=== PATIENT | female | born 1935 | race Caucasian/White ===

== ENCOUNTER 2016-08-23 14:38 | Emergency (ER) | payer OTHER ==
--- NOTE | 2016-08-23 15:13 | ED EKG INTERP ---
EKG Interpretation - EKG Time of EKG reading by physician:: 15:01 EKG Read and Signed by:: Tin Sanchez EKG Interpretation (*Must complete 3 of following elements*): Abnormal Rate: 85 Rhythm: Sinus Rhythm [facility] [place]: normal QRS: normal NV Interval: normal ST Wave: non-specific ST changes Attestation - Scribe Verification/Attestation Scribe:: Bandar Whitten Acting as Scribe for:: Tin Sanchez Scribe documention review:: This chart was documented by a scribe and accurately reflects the service the provider performed and the decisions made by the provider. Physician Attestation - Physician Attestation I, the provider, attest to the following statement:: iTn Sanchez (\) Physician documentation Attestation:: This documentation recorded by the scribe accurately reflects the service I personally performed and the decisions made by me.
[2016-08-23 15:36] LABS: MANUAL DIFF NEEDED? NO
--- NOTE | 2016-08-23 15:39 | EKG Report ---
Test Performed on : 08/23/2016 3:01:01 PM Test Reason : CHEST PAIN Blood Pressure : / mmHG Vent. Rate : 077 BPM Atrial Rate : 083 BPM P-R Int : 000 ms QRS Dur : 076 ms QT Int : 430 ms P-R-T Axes : 000 006 072 degrees QTc Int : 486 ms Atrial fibrillation. Inferior infarct (cited on or before 17-JUN-2007) ST & T wave abnormality, consider lateral ischemia Abnormal ECG When compared with ECG of 26-OCT-2012 22:12, Atrial fibrillation. has replaced Sinus rhythm. ST now depressed in Lateral leads Unconfirmed Result
[2016-08-23 15:49] LABS: BASO% 0.6 % (0.0-0.8); EOS% 2.9 % (0.0-10.0); HEMATOCRIT 44.7 % (37.0-47.0); LYMPH# 1.38 X1000 (1.2-3.4); LYMPH% 20.4 % (20.5-51.1); MCH 32.6 PG (27-31); MCHC 33.6 g/dL (33-37); MCV 97.2 FL (81-99); MONO# 0.83 X1000 (0.11-0.59); MONO% 12.2 % (1.7-9.3); MPV 11.4 FL (7.4-10.4); NEUT% 63.9 % (42.2-75.2); PLT 197 X1000 (130-400)
[2016-08-23 15:55] LABS: INR 1.45; PROTIME 15.4 Seconds (9.2-11.7); PTT 32.5 Seconds (22.0-36.0)
[2016-08-23 16:00] LABS: ALBUMIN 3.2 g/dL (3.5-5.0); CALCIUM 9.3 mg/dL (8.8-10.2); MAGNESIUM 1.7 mg/dL (1.5-2.7); POTASSIUM 4.1 mmol/L (3.5-5.1); TOTAL BILIRUBIN 0.68 mg/dL (0.20-1.00); TOTAL PROTEIN 6.4 g/dL (6.3-8.3)
--- NOTE | 2016-08-23 16:41 | PROVIDER DOCUMENTATION ---
HPI-Respiratory General - General Source: patient, family - History of Present Illness-Resp Quality of Pain: reports: fullness Severity in ED: reports: moderate Onset/Duration: reports: other (x2 weeks) Timing: reports: still present (pt states is improving, still present but not as bad a it was before she came into the ER.) Cough Quality/Degree: reports: mild. denies: sputum, blood streaked sputum Episode Frequency: no prior episodes Modifying Factors: improves with: nothing Similar Symptoms Previously?: No Recently seen or treated by another doctor?: No <Crissy Carlson - Last Filed: 08/23/16 16:53> <Tc Little - Last Filed: 08/23/16 19:23> - General Chief Complaint: Shortness of Breath Stated Complaint: DIFFICULTY BREATHING Time Seen by Provider: 08/23/16 16:34 Allergies/Adverse Reactions: Patient Allergies Allergy/AdvReac Type Severity Reaction Status Date / Time iodine Allergy Intermediate RASH Verified 08/23/16 16:31 Home Medications: Home Medication List Medication Instructions Recorded Confirmed Last Taken Type Aspirin 81 mg PO DAILY 10/26/12 08/23/16 1 Week Ago History Hydroxyzine [Atarax] 25 mg PO BID 10/26/12 08/23/16 1 Week Ago History Insulin Aspart [Novolog Flexpen] 100 units SQ TID 10/26/12 08/23/16 08/23/16 History Insulin Detemir [Levemir Flexpen] 25 units SQ QHS 10/26/12 08/23/16 08/23/16 History Isosorbide Mononitrate E.r. [Imdur] 30 mg PO BID 10/26/12 08/23/16 1 Week Ago History Pantoprazole Sodium [Protonix] 20 mg PO DAILY 10/26/12 08/23/16 1 Week Ago History Valsartan [Diovan] 80 mg PO DAILY 10/26/12 08/23/16 1 Week Ago History Carvedilol C.r. [Coreg Cr] 40 mg PO DAILY #0 capsule 10/30/12 08/23/16 1 Week Ago Rx Glimepiride [Amaryl] 2 mg PO BID #0 tablet 10/30/12 08/23/16 1 Week Ago Rx Magnesium Oxide [Magnesium] 400 mg PO DAILY #30 capsule 10/30/12 08/23/16 1 Week Ago Rx RAMIpril [Altace] 5 mg PO DAILY #0 capsule 10/30/12 08/23/16 1 Week Ago Rx SIMVAstatin [Zocor] 20 mg PO DAILY #0 tablet 10/30/12 08/23/16 1 Week Ago Rx Mometasone/Formoterol [Dulera 200 2 puff INH BID #1 inhaler 09/03/14 08/23/16 1 Week Ago Rx Mcg/5 Mcg Inhaler] Ropinirole HCl [Requip] 0.25 mg PO HS 09/03/14 08/23/16 08/23/16 History Rivaroxaban [Xarelto] 15 mg PO DAILY 10/15/15 08/23/16 1 Week Ago History Cholecalciferol (Vitamin D3) 2,000 unit PO 08/23/16 1 Week Ago History [Vitamin D3] Furosemide [Lasix] 40 mg PO DAILY 08/23/16 08/23/16 1 Week Ago History Iron Carbonyl/Vit C/Vit B12/FA 1 each PO DAILY 08/23/16 08/23/16 1 Week Ago History [Icar-C Plus] Ketoconazole 2% Cream [Nizoral 2% TOP BID 08/23/16 Unknown History Cream] Lorazepam [Ativan] 0.5 mg PO TID 08/23/16 08/23/16 08/23/16 History Nitroglycerin [Nitroquick] 0.4 mg SL PRN PRN 08/23/16 08/23/16 Unknown History Polyethylene Glycol 3350 [Miralax] 1 cap PO DAILY #1 powder 08/23/16 Unknown Rx Potassium Chloride E.r. [Klor-Con] 20 meq PO DAILY 08/23/16 08/23/16 1 Week Ago History - History of Present Illness-Resp Nature of Presenting Problem: pt is a 81 y/o F present to the ER with complaints of shortness of breath. pt was at Dr omss's office today and felt short of breath, Dr. moss sent her to the ER. at bedside. Pt states this problem started [id number] ago. pt also states she has problem swallowing because she feels like she cannot catch her breath. Pt has hx of stroke, HTN, DM. Pt states she has not had a normal bowel movement x2 weeks, she passed small amount of liquid stool x2 days ago. pt denies chest pain, nausea, vomiting. (Crissy Carlson) Review of Systems - Adult - REVIEW OF SYSTEMS - ADULT Constitutional: reports: no symptoms reported Eyes: reports: no symptoms reported Ears, Nose, Mouth & Throat: reports: no symptoms reported Cardiovascular: reports: no symptoms reported Respiratory: reports: shortness of breath. denies: dyspnea on exertion, excessive sputum production, hemoptysis Gastrointestinal: reports: abdominal pain, constipation, difficulty swallowing. denies: hematemesis, diarrhea, nausea, vomiting Genitourinary: reports: no symptoms reported Musculoskeletal: reports: no symptoms reported Integumentary: reports: no symptoms reported Neurological: reports: no symptoms reported Psychiatric: reports: no symptoms reported Endocrine: reports: no symptoms reported Hematologic/Lymphatic: reports: no symptoms reported Allergic/Immunologic: reports: no symptoms reported All Other Systems: Reviewed and Negative <Crissy Carlson - Last Filed: 08/23/16 16:53> Past History - Adult - PAST MEDICAL HISTORY-ADULT Review of Records: reports: Nursing Assessment Review Major Childhood Illnesses: reports: denies history Cardiovascular: reports: CAD, CHF, HTN, hyperlipidemia Neurological: reports: CVA - PRIOR SURGERIES/PROCEDURES Surgical/Procedure History: reports: reviewed, not pertinent - IMMUNIZATION STATUS Childhood Immunizations: See Nurse Assessment Flu Vaccine: See Nurse Assessment - SOCIAL HISTORY Smoking: denies Substance Use: none/never Alcohol Use Frequency: never <Crissy Carlson - Last Filed: 08/23/16 16:53> Physical Exam-General - PHYSICAL EXAM-ADULT Initial Vital Signs Reviewed: Yes - CONSTITUTIONAL General Appearance: appears well, alert, mild distress - EYES Eyes: PERRL/EOMI, pink conjunctivae - HEAD, EARS, NOSE, MOUTH & THROAT HENMT: moist mucous membranes - NECK Neck: non-tender, full range of motion - RESPIRATORY Respiratory: chest non-tender, lungs clear, normal breath sounds - CARDIOVASCULAR Cardiovascular: normal peripheral pulses, regular rate, rhythm - GASTROINTESTINAL (ABDOMEN) Abdominal Exam: normal bowel sounds, distended, tenderness (LUQ TTP) - SKIN Integumentary: normal color, normal turgor, warm/dry - PSYCHIATRIC Psych/Mental Status: normal mood/affect, normal thought content, normal thought process, oriented x 3 <Crissy Carlson - Last Filed: 08/23/16 16:53> Progress - XRAY 1 XRAY: Bilateral XRAY Study: Chest Impression: Abnormal (mild central vascular prominence ([place])) <Crissy Carlson - Last Filed: 08/23/16 16:53> - CT/MRI 1 CT Study: Abdomen, Pelvis Impression: Abnormal (Oral contrast within the colon from a barium swallow on ; no bowel obstruction; normal appendix; no abscess; no renal stones; no hydronephrosis; lots of abdominal fat; no ascites; atherosclerosis - radiology) <Tc Little - Last Filed: 08/23/16 19:23> - PLAN OF CARE/RESULTS Progress/Plan/Lab Results: Laboratory Tests 08/23/16 08/23/16 08/23/16 15:12 15:12 15:12 WBC 6.78 RBC 4.60 Hgb 15.0 Hct 44.7 MCV 97.2 MCH 32.6 H MCHC 33.6 RDW Std Deviation 12.9 Plt Count 197 MPV 11.4 H Immature Gran % (Auto) 0.0 Neut % (Auto) 63.9 Lymph % (Auto) 20.4 L [place] % (Auto) 12.2 H Eos % (Auto) 2.9 Baso % (Auto) 0.6 Immature Gran # (Auto) 0.00 Neut # (Auto) 4.33 Lymph # (Auto) 1.38 [place] # (Auto) 0.83 H Eos # (Auto) 0.20 Baso # (Auto) 0.04 PT INR PTT (Actin FS) D-Dimer 0.24 Sodium 141 Potassium 4.1 Chloride 100 Carbon Dioxide 24 L Anion Gap 17 BUN 18 Creatinine 1.6 H Estimated GFR/1.73 m2 31 BUN/Creatinine Ratio 11 Glucose 229 H Calculated Osmolality 290 Calcium 9.3 Magnesium 1.7 Total Bilirubin 0.68 AST 18 ALT 9 L Alkaline Phosphatase 84 Creatine Kinase 60 Troponin T Yzt-B-Eudqwxuhxpp Pept Total Protein 6.4 Albumin 3.2 L Globulin 3.2 Albumin/Globulin Ratio 1.0 08/23/16 08/23/16 08/23/16 15:12 15:12 15:12 WBC RBC Hgb Hct MCV MCH MCHC RDW Std Deviation Plt Count MPV Immature Gran % (Auto) Neut % (Auto) Lymph % (Auto) [place] % (Auto) Eos % (Auto) Baso % (Auto) Immature Gran # (Auto) Neut # (Auto) Lymph # (Auto) [place] # (Auto) Eos # (Auto) Baso # (Auto) PT 15.4 H INR 1.45 PTT (Actin FS) 32.5 D-Dimer Sodium Potassium Chloride Carbon Dioxide Anion Gap BUN Creatinine Estimated GFR/1.73 m2 BUN/Creatinine Ratio Glucose Calculated Osmolality Calcium Magnesium Total Bilirubin AST ALT Alkaline Phosphatase Creatine Kinase Troponin T < 0.010 Pgv-M-Qmwmvroncyh Pept 1603 H Total Protein Albumin Globulin Albumin/Globulin Ratio Orders Category Date Time Status CHEST-2 VIEWS [RAD] Stat Exams 08/23/16 14:48 Taken CBC WITH ELECTRONIC DIFF [HEME] Stat Lab 08/23/16 15:12 Completed CK PROFILE [SP CHEM] Stat Lab 08/23/16 15:12 Completed COMPREHENSIVE METABOLIC PANEL [CHEM] Stat Lab 08/23/16 15:12 Completed D-DIMER [CHEM] Stat Lab 08/23/16 15:12 Completed MAGNESIUM [CHEM] Stat Lab 08/23/16 15:12 Completed PRO B-NATRIURETIC PEPTIDE Stat Lab 08/23/16 15:12 Completed PROTIME WITH INR [COAG] Stat Lab 08/23/16 15:12 Completed PTT [COAG] Stat Lab 08/23/16 15:12 Completed TROPONIN T Stat Lab 08/23/16 15:12 Completed EKG [EKG] Stat Ther 08/23/16 14:48 Draft Vital Signs - 24 hr 08/23/16 14:46 Temperature 97.2 F L Pulse Rate 75 Respiratory 20 Rate Blood Pressure 136/68 O2 Sat by Pulse 100 Oximetry Laboratory Tests 08/23/16 08/23/16 08/23/16 15:12 15:12 15:12 WBC 6.78 RBC 4.60 Hgb 15.0 Hct 44.7 MCV 97.2 MCH 32.6 H MCHC 33.6 RDW Std Deviation 12.9 Plt Count 197 MPV 11.4 H Immature Gran % (Auto) 0.0 Neut % (Auto) 63.9 Lymph % (Auto) 20.4 L [place] % (Auto) 12.2 H Eos % (Auto) 2.9 Baso % (Auto) 0.6 Immature Gran # (Auto) 0.00 Neut # (Auto) 4.33 Lymph # (Auto) 1.38 [place] # (Auto) 0.83 H Eos # (Auto) 0.20 Baso # (Auto) 0.04 PT INR PTT (Actin FS) D-Dimer 0.24 Sodium 141 Potassium 4.1 Chloride 100 Carbon Dioxide 24 L Anion Gap 17 BUN 18 Creatinine 1.6 H Estimated GFR/1.73 m2 31 BUN/Creatinine Ratio 11 Glucose 229 H Calculated Osmolality 290 Calcium 9.3 Magnesium 1.7 Total Bilirubin 0.68 AST 18 ALT 9 L Alkaline Phosphatase 84 Creatine Kinase 60 Troponin T Kia-H-Aywpynnxjlk Pept Total Protein 6.4 Albumin 3.2 L Globulin 3.2 Albumin/Globulin Ratio 1.0 08/23/16 08/23/16 08/23/16 15:12 15:12 15:12 WBC RBC Hgb Hct MCV MCH MCHC RDW Std Deviation Plt Count MPV Immature Gran % (Auto) Neut % (Auto) Lymph % (Auto) [place] % (Auto) Eos % (Auto) Baso % (Auto) Immature Gran # (Auto) Neut # (Auto) Lymph # (Auto) [place] # (Auto) Eos # (Auto) Baso # (Auto) PT 15.4 H INR 1.45 PTT (Actin FS) 32.5 D-Dimer Sodium Potassium Chloride Carbon Dioxide Anion Gap BUN Creatinine Estimated GFR/1.73 m2 BUN/Creatinine Ratio Glucose Calculated Osmolality Calcium Magnesium Total Bilirubin AST ALT Alkaline Phosphatase Creatine Kinase Troponin T < 0.010 Iww-U-Huiajvzxgmy Pept 1603 H Total Protein Albumin Globulin Albumin/Globulin Ratio Orders Category Date Time Status PO Fluid Challenge DIRECTED Care 08/23/16 16:43 Active CHEST-2 VIEWS [RAD] Stat Exams 08/23/16 14:[address] ABD/PELVIS W/ IV CONT ONLY [CT] Stat Exams 08/23/16 16:53 Ordered CBC WITH ELECTRONIC DIFF [HEME] Stat Lab 08/23/16 15:12 Completed CK PROFILE [SP CHEM] Stat Lab 08/23/16 15:12 Completed CK PROFILE [SP CHEM] Stat Lab 08/23/16 16:53 Uncollected COMPREHENSIVE METABOLIC PANEL [CHEM] Stat Lab 08/23/16 15:12 Completed D-DIMER [CHEM] Stat Lab 08/23/16 15:12 Completed MAGNESIUM [CHEM] Stat Lab 08/23/16 15:12 Completed PRO B-NATRIURETIC PEPTIDE Stat Lab 08/23/16 15:12 Completed PROTIME WITH INR [COAG] Stat Lab 08/23/16 15:12 Completed PTT [COAG] Stat Lab 08/23/16 15:12 Completed TROPONIN T Stat Lab 08/23/16 15:12 Completed TROPONIN T Stat Lab 08/23/16 16:53 Uncollected EKG [EKG] Stat Ther 08/23/16 14:48 Draft EKG [EKG] Stat Ther 08/23/16 16:53 Ordered Vital Signs - 24 hr 08/23/16 14:46 Temperature 97.2 F L Pulse Rate 75 Respiratory 20 Rate Blood Pressure 136/68 O2 Sat by Pulse 100 Oximetry (Aldo,Crissy) Orders Category Date Time Status PO Fluid Challenge DIRECTED Care 08/23/16 16:43 Active ABDOMEN/PELVIS W/O CONTRAST [CT] Stat Exams 08/23/16 16:53 Taken CHEST-2 VIEWS [RAD] Stat Exams 08/23/16 14:48 Draft CBC WITH ELECTRONIC DIFF [HEME] Stat Lab 08/23/16 15:12 Completed CK PROFILE [SP CHEM] Stat Lab 08/23/16 15:12 Completed CK PROFILE [SP CHEM] Stat Lab 08/23/16 18:35 Completed COMPREHENSIVE METABOLIC PANEL [CHEM] Stat Lab 08/23/16 15:12 Completed D-DIMER [CHEM] Stat Lab 08/23/16 15:12 Completed MAGNESIUM [CHEM] Stat Lab 08/23/16 15:12 Completed PRO B-NATRIURETIC PEPTIDE Stat Lab 08/23/16 15:12 Completed PROTIME WITH INR [COAG] Stat Lab 08/23/16 15:12 Completed PTT [COAG] Stat Lab 08/23/16 15:12 Completed TROPONIN T Stat Lab 08/23/16 15:12 Completed TROPONIN T Stat Lab 08/23/16 18:35 Completed EKG [EKG] Stat Ther 08/23/16 14:48 Draft EKG [EKG] Stat Ther 08/23/16 16:53 Ordered Laboratory Tests 08/23/16 08/23/16 08/23/16 15:12 15:12 15:12 WBC 6.78 RBC 4.60 Hgb 15.0 Hct 44.7 MCV 97.2 MCH 32.6 H MCHC 33.6 RDW Std Deviation 12.9 Plt Count 197 MPV 11.4 H Immature Gran % (Auto) 0.0 Neut % (Auto) 63.9 Lymph % (Auto) 20.4 L [place] % (Auto) 12.2 H Eos % (Auto) 2.9 Baso % (Auto) 0.6 Immature Gran # (Auto) 0.00 Neut # (Auto) 4.33 Lymph # (Auto) 1.38 [place] # (Auto) 0.83 H Eos # (Auto) 0.20 Baso # (Auto) 0.04 PT INR PTT (Actin FS) D-Dimer 0.24 Sodium 141 Potassium 4.1 Chloride 100 Carbon Dioxide 24 L Anion Gap 17 BUN 18 Creatinine 1.6 H Estimated GFR/1.73 m2 31 BUN/Creatinine Ratio 11 Glucose 229 H Calculated Osmolality 290 Calcium 9.3 Magnesium 1.7 Total Bilirubin 0.68 AST 18 ALT 9 L Alkaline Phosphatase 84 Creatine Kinase 60 Troponin T Wld-E-Wobwhcgpvvv Pept Total Protein 6.4 Albumin 3.2 L Globulin 3.2 Albumin/Globulin Ratio 1.0 08/23/16 08/23/16 08/23/16 15:12 15:12 15:12 WBC RBC Hgb Hct MCV MCH MCHC RDW Std Deviation Plt Count MPV Immature Gran % (Auto) Neut % (Auto) Lymph % (Auto) [place] % (Auto) Eos % (Auto) Baso % (Auto) Immature Gran # (Auto) Neut # (Auto) Lymph # (Auto) [place] # (Auto) Eos # (Auto) Baso # (Auto) PT 15.4 H INR 1.45 PTT (Actin FS) 32.5 D-Dimer Sodium Potassium Chloride Carbon Dioxide Anion Gap BUN Creatinine Estimated GFR/1.73 m2 BUN/Creatinine Ratio Glucose Calculated Osmolality Calcium Magnesium Total Bilirubin AST ALT Alkaline Phosphatase Creatine Kinase Troponin T < 0.010 Ldb-R-Pyrjoxnufmk Pept 1603 H Total Protein Albumin Globulin Albumin/Globulin Ratio 08/23/16 08/23/16 18:35 18:35 WBC RBC Hgb Hct MCV MCH MCHC RDW Std Deviation Plt Count MPV Immature Gran % (Auto) Neut % (Auto) Lymph % (Auto) [place] % (Auto) Eos % (Auto) Baso % (Auto) Immature Gran # (Auto) Neut # (Auto) Lymph # (Auto) [place] # (Auto) Eos # (Auto) Baso # (Auto) PT INR PTT (Actin FS) D-Dimer Sodium Potassium Chloride Carbon Dioxide Anion Gap BUN Creatinine Estimated GFR/1.73 m2 BUN/Creatinine Ratio Glucose Calculated Osmolality Calcium Magnesium Total Bilirubin AST ALT Alkaline Phosphatase Creatine Kinase 60 Troponin T < 0.010 Dwv-W-Elwrerodpzg Pept Total Protein Albumin Globulin Albumin/Globulin Ratio Vital Signs - 24 hr 08/23/16 08/23/16 14:46 18:59 Temperature 97.2 F L Pulse Rate 75 70 Respiratory 20 19 Rate Blood Pressure 136/68 135/75 O2 Sat by Pulse 100 99 Oximetry (Tc Little) Departure <Crissy Carlson - Last Filed: 08/23/16 16:53> - Departure Time of Disposition Order: 19:21 Certified Medical Emergency: Emergent <Tc Little - Last Filed: 08/23/16 19:23> - Departure DIAGNOSIS: Esophageal dysmotility Constipation Qualifiers: Constipation type: unspecified constipation type Qualified Code(s): K59.00 - Constipation, unspecified Disposition: HOME 01 Condition: Stable Additional Instructions: ED Follow Up Instructions: You have been treated by a care provider in the Emergency Department. These instructions are being provided to you so you can have an understanding of how to care for yourself upon discharge. Upon discharge from the Emergency Department, you are responsible for making arrangements for follow-up care by a physician of your choice. Take all prescribed medications as directed. Return to the Emergency Department immediately for any new or worsening symptoms. You may call the Physician Referral phone number at [phone] to obtain a list of Physicians who are taking new patients. Prescriptions: Polyethylene Glycol 3350 [Miralax] 1 cap PO DAILY #1 powder Referrals: Hamzah Mejía DO [Primary Care Provider] - Call for Appoint. -1 week Sebastian Farah MD [STAFF PHYSICIAN] - Call for Appoint. -1 week Attestation - Scribe Verification/Attestation Scribe:: Crissy Carlson Acting as Scribe for:: Tc Little Scribe documention review:: This chart was documented by a scribe and accurately reflects the service the provider performed and the decisions made by the provider. <Crissy Carlson - Last Filed: 08/23/16 16:53> - Physician/ MICHAEL Attestation Patient care was provided by Advanced Practice Provider:: Yes Advanced Practice Provider:: Tc Little Advanced Practice Provider documentation review:: The Mid-level provider documentation, treatment plan and medical decision making was reviewed by the physician who agrees with all treatment and medical decision making by the MLP. <Tc Little - Last Filed: 08/23/16 19:23> Physician Attestation
--- NOTE | 2016-08-23 17:28 | Diag Imaging Result Document ---
PROCEDURE NAME: CHEST-2 VIEWS - 08/23/2016 FRONTAL AND LATERAL CHEST, THREE VIEWS: COMPARISON: 09/03/2014. FINDINGS: The lungs are well expanded. The heart is borderline mildly prominent. Mild central vascular prominence. No pleural effusions. No consolidation. No free air beneath the diaphragm. IMPRESSION: Borderline mildly prominent heart with mild central vascular prominence. There are scattered granulomata.
[2016-08-23 20:25] VITALS: BP 140/72
--- NOTE | 2016-08-24 08:17 | Diag Imaging Result Document ---
PROCEDURE NAME: ABDOMEN/PELVIS W/O CONTRAST - 08/23/2016 CT ABDOMEN AND PELVIS WITHOUT ORAL OR INTRAVENOUS CONTRAST: COMPARISON: 10/27/2012. FINDINGS: There are many scattered hepatic and splenic granulomata. The spleen is not enlarged. Normal adrenal glands. There is fatty replacement of the pancreas. No inflammation about the pancreas. I believe the gallbladder has been removed. No renal stones. No hydronephrosis. Prominent atherosclerosis. No aneurysmal dilatation to the aorta. There is barium throughout the colon. The patient had a barium swallow on 08/19/2016. The bowel loops are not dilated. Normal appendix. No abscess. No free air. No ascites. There is a large amount of adipose tissue within the abdomen. The urinary bladder is only mildly distended. The uterus is small. No pelvic mass. IMPRESSION: 1. No bowel obstruction. 2. No renal stones or hydronephrosis. There is a left renal cyst. 3. Atherosclerosis. A preliminary report was given at 6:29 p.m..
== END 2016-08-23 20:23 | disposition home or self-care (01) ==
LOC: ED 14:38
DX: K22.4 Dyskinesia of esophagus (principal); K59.00 Constipation, unspecified; R06.02 Shortness of breath; R13.10 Dysphagia, unspecified; I25.10 Atherosclerotic heart disease of native coronary artery without angina pectoris; I50.9 Heart failure, unspecified; I10 Essential (primary) hypertension; Z86.73 Personal history of transient ischemic attack (TIA), and cerebral infarction without residual deficits; Z79.899 Other long term (current) drug therapy; E78.5 Hyperlipidemia, unspecified; R10.12 Left upper quadrant pain; R94.31 Abnormal electrocardiogram [ECG] [EKG]; Z79.01 Long term (current) use of anticoagulants; Z79.4 Long term (current) use of insulin
CPT/HCPCS: 71020; 74176; 80053; 82550; 83735; 83880; 84484; 85025; 85379; 85610; 85730; 93005

== ENCOUNTER 2016-12-07 12:00 | Inpatient (IN) ==
[2016-12-07 12:59] LABS: ALLEN TEST YES; BE 8.3 mmoll (-3.0-3.0); BLOOD TYPE ARTERIAL; DRAW SITE L RADIAL; METHB 1.1 % (0.0-1.5); O2(CT) 15.3 mL/dL (15.0-23.0); PO2(98.6) 100 mmHg (60-100); SAMPLE BLOOD; SAO2 99.4 % (95.0-100.0); THB 11.2 g/dL (11.5-17.4)
[2016-12-07 13:01] LABS: MODALITY CANNULA
[2016-12-07 13:03] LABS: PCO2(98.6) 56 mmHg (35-45)
--- NOTE | 2016-12-07 13:10 | Diag Imaging Result Doc PS360 ---
EXAM: CHEST-PORTABLE HISTORY: SOB TECHNIQUE: AP portable at 1245 COMMENT: The inspiration is less optimal than on 09/25/2016. There is cardiomegaly and mild pulmonary vascular prominence with increased interstitial markings. There is marked attenuation particularly over the left chest due to the patient's large body habitus. IMPRESSION: Poor inspiration. Probably unchanged since 09/25/2016. Possibility of mild interstitial pulmonary edema and congestive heart failure cannot be excluded. Electronically signed by Evan Flower 12/07/2016 1:08 PM
[2016-12-07 13:17] LABS: MANUAL DIFF NEEDED? NO
[2016-12-07 13:20] LABS: BASO% 0.8 % (0.0-0.8); EOS# 0.12 X1000 (0.0-0.7); EOS% 1.9 % (0.0-10.0); HEMATOCRIT 35.8 % (37.0-47.0); HEMOGLOBIN 11.3 g/dL (12.0-16.0); LYMPH# 0.74 X1000 (1.2-3.4); LYMPH% 11.5 % (20.5-51.1); MCH 32.6 PG (27-31); MCHC 31.6 g/dL (33-37); MCV 103.2 FL (81-99); MONO# 0.84 X1000 (0.11-0.59); MPV 10.2 FL (7.4-10.4); NEUT% 72.8 % (42.2-75.2); PLT 204 X1000 (130-400); RBC 3.47 XMIL (4.2-5.4)
[2016-12-07 13:31] LABS: INR 1.77; PROTIME 19.3 Seconds (9.2-11.7); PTT 33.9 Seconds (22.0-36.0)
[2016-12-07 14:05] LABS: ALBUMIN 3.3 g/dL (3.5-5.0); CALCIUM 8.4 mg/dL (8.8-10.2); MAGNESIUM 1.6 mg/dL (1.5-2.7); POTASSIUM 3.5 mmol/L (3.5-5.1); TOTAL BILIRUBIN 1.03 mg/dL (0.20-1.00); TOTAL PROTEIN 5.8 g/dL (6.3-8.3)
[2016-12-07] MEDS ORDERED: ATIVAN IV ONE (15:04)
[2016-12-07] MEDS ORDERED: LASIX IV ONE (15:11)
--- NOTE | 2016-12-07 15:14 | PROVIDER DOCUMENTATION ---
This chart was entered by Scar Almazan Scribe, acting as scribe for Leodan Holden MD. HPI-General Adult - General Stated Complaint: throt swelling Time Seen by Provider: 12/07/16 12:18 Source: patient, family Allergies/Adverse Reactions: Patient Allergies Allergy/AdvReac Type Severity Reaction Status Date / Time iodine Allergy Intermediate RASH Verified 12/07/16 12:35 Home Medications: Home Medication List Medication Instructions Recorded Confirmed Last Taken Type Hydroxyzine [Atarax] 25 mg PO BID PRN 10/26/12 12/07/16 12/07/16 History Insulin Aspart [Novolog Flexpen] 15 units SQ TID 10/26/12 12/07/16 12/06/16 History Insulin Detemir [Levemir Flexpen] 25 units SQ QHS 10/26/12 12/07/16 12/06/16 History Isosorbide Mononitrate E.r. [Imdur] 30 mg PO BID 10/26/12 12/07/16 12/07/16 History Pantoprazole Sodium [Protonix] 40 mg PO DAILY 10/26/12 12/07/16 12/07/16 History Glimepiride [Amaryl] 2 mg PO BID #0 tablet 10/30/12 12/07/16 12/07/16 Rx Mometasone/Formoterol [Dulera 200 2 puff INH BID #1 inhaler 09/03/14 12/07/16 Rx Mcg/5 Mcg Inhaler] Ropinirole HCl [Requip] 0.5 mg PO HS 09/03/14 12/07/16 12/06/16 History Iron Carbonyl/Vit C/Vit B12/FA 1 each PO DAILY 08/23/16 12/07/16 12/07/16 History [Icar-C Plus] Lorazepam [Ativan] 0.5 mg PO TID PRN 08/23/16 12/07/16 12/07/16 History Nitroglycerin [Nitroquick] 0.4 mg SL PRN PRN 08/23/16 12/07/16 09/11/16 History Potassium Chloride E.r. [Klor-Con] 20 meq PO QHS 08/23/16 12/07/16 12/06/16 History Atorvastatin Calcium [Atorvastatin 40 mg PO QHS 11/30/16 12/07/16 12/06/16 History Calcium] Carvedilol [Coreg] 3.125 mg PO BID 11/30/16 12/07/16 12/07/16 History Cholecalciferol (Vit D3) [Vitamin 5,000 unit PO DAILY 11/30/16 12/07/16 History D3] Clopidogrel Bisulfate [Clopidogrel] 75 mg PO DAILY 11/30/16 12/07/16 12/07/16 History Rivaroxaban [Xarelto] 15 mg PO QHS 11/30/16 12/07/16 12/06/16 History - History of Present Illness -Gen Adult Nature of Presenting Problems: 81 yo F presents to the ER via EMS with complaint of swelling all over. PT also complains she can't swallow and its hard to breathe. PT uses oxygen at home . Pt has COPD and is diabetic. Pain Radiation: reports: no radiation Severity: reports: mild Onset/Duration: reports: last night Timing: reports: still present Associated Symptoms: reports: shortness of breath, other (swelling all over) Review of Systems - Adult - REVIEW OF SYSTEMS - ADULT Constitutional: denies: chills, fever Cardiovascular: reports: edema. denies: chest pain, palpitations Respiratory: reports: see HPI, shortness of breath. denies: cough Gastrointestinal: denies: abdominal pain, nausea, vomiting Musculoskeletal: denies: back pain, neck pain All Other Systems: Reviewed and Negative Past History - Adult - PAST MEDICAL HISTORY-ADULT Review of Records: reports: Old Records Reviewed, Nursing Assessment Review, Medications Reviewed, Social history reviewed & non-contributory. Major Childhood Illnesses: reports: denies history Cardiovascular: reports: CAD, CHF, HTN, hyperlipidemia Respiratory: reports: denies history Gastrointestinal: reports: denies history Obstetrical/Gynecological: reports: denies history Genitourinary: reports: denies history Musculoskeletal: reports: denies history Neurological: reports: CVA Endocrine/Immune: reports: denies history Other Conditions: reports: denies history - PRIOR SURGERIES/PROCEDURES Surgical/Procedure History: reports: cholecystectomy, cardiac stent, back/neck - IMMUNIZATION STATUS Childhood Immunizations: See Nurse Assessment Flu Vaccine: See Nurse Assessment - FAMILY HISTORY Family History: reviewed, not pertinent Physical Exam-General - PHYSICAL EXAM-ADULT Initial Vital Signs Reviewed: Yes - CONSTITUTIONAL General Appearance: appears well, alert, no apparent distress - HEAD, EARS, NOSE, MOUTH & THROAT HENMT: normocephalic/atraumatic, moist mucous membranes - NECK Neck: non-tender, full range of motion, supple - RESPIRATORY Respiratory: chest non-tender, lungs clear - CARDIOVASCULAR Cardiovascular: normal peripheral pulses, regular rate, rhythm - MUSCULOSKELETAL Extremity: normal range of motion, non-tender, normal gait - SKIN Integumentary: normal color, normal turgor, swelling Progress - PLAN OF CARE/RESULTS Progress/Plan/Lab Results: Vital Signs - 8 hr 12/07/16 12:30 12/07/16 13:00 Temperature 98.0 F Pulse Rate 67 Respiratory Rate 20 Blood Pressure 152/98 152/98 O2 Sat by Pulse Oximetry 94 L 98 Laboratory Results - last 24 hr 12/07/16 12/07/16 12/07/16 12:50 13:03 13:03 WBC 6.45 RBC 3.47 L Hgb 11.3 L Hct 35.8 L MCV 103.2 H MCH 32.6 H MCHC 31.6 L RDW Std Deviation 14.5 Plt Count 204 MPV 10.2 Immature Gran % (Auto) 0.0 Neut % (Auto) 72.8 Lymph % (Auto) 11.5 L Stevens % (Auto) 13.0 H Eos % (Auto) 1.9 Baso % (Auto) 0.8 Immature Gran # (Auto) 0.00 Neut # (Auto) 4.70 Lymph # (Auto) 0.74 L Stevens # (Auto) 0.84 H Eos # (Auto) 0.12 Baso # (Auto) 0.05 PT INR PTT (Actin FS) D-Dimer Specimen Type ARTERIAL Sample Site L RADIAL pH 7.40 pCO2 56 H* pO2 100 HCO3 31.4 H Base Excess 8.3 H Oxyhemoglobin 96.1 ABG O2 Sat (Calculated) 15.3 ABG O2 Saturation 99.4 ABG Carboxyhemoglobin 2.20 ABG Methemoglobin 1.1 Quentin Test YES A-a O2 Difference 58.0 Total Hemoglobin 11.2 L Lactate 1.00 Liter Flow 3.0 Blood Gas Modality CANNULA FiO2 % 32.0 Sodium 143 Potassium 3.5 Chloride 102 Carbon Dioxide 30 Anion Gap 11 BUN 4 L Creatinine 1.0 H Estimated GFR/1.73 m2 53 BUN/Creatinine Ratio 4 Glucose 86 Calculated Osmolality 281 Calcium 8.4 L Magnesium 1.6 Total Bilirubin 1.03 H AST 14 ALT 6 L Alkaline Phosphatase 84 Creatine Kinase 58 Troponin T Zbz-O-Emskjytyhll Pept Total Protein 5.8 L Albumin 3.3 L Globulin 2.5 Albumin/Globulin Ratio 1.3 12/07/16 12/07/16 12/07/16 13:03 13:03 13:03 WBC RBC Hgb Hct MCV MCH MCHC RDW Std Deviation Plt Count MPV Immature Gran % (Auto) Neut % (Auto) Lymph % (Auto) Stevens % (Auto) Eos % (Auto) Baso % (Auto) Immature Gran # (Auto) Neut # (Auto) Lymph # (Auto) Stevens # (Auto) Eos # (Auto) Baso # (Auto) PT 19.3 H INR 1.77 PTT (Actin FS) 33.9 D-Dimer 0.73 H Specimen Type Sample Site pH pCO2 pO2 HCO3 Base Excess Oxyhemoglobin ABG O2 Sat (Calculated) ABG O2 Saturation ABG Carboxyhemoglobin ABG Methemoglobin Quentin Test A-a O2 Difference Total Hemoglobin Lactate Liter Flow Blood Gas Modality FiO2 % Sodium Potassium Chloride Carbon Dioxide Anion Gap BUN Creatinine Estimated GFR/1.73 m2 BUN/Creatinine Ratio Glucose Calculated Osmolality Calcium Magnesium Total Bilirubin AST ALT Alkaline Phosphatase Creatine Kinase Troponin T Yaq-O-Nhyfvpgxgpg Pept 5896 H Total Protein Albumin Globulin Albumin/Globulin Ratio 12/07/16 13:03 WBC RBC Hgb Hct MCV MCH MCHC RDW Std Deviation Plt Count MPV Immature Gran % (Auto) Neut % (Auto) Lymph % (Auto) Stevens % (Auto) Eos % (Auto) Baso % (Auto) Immature Gran # (Auto) Neut # (Auto) Lymph # (Auto) Stevens # (Auto) Eos # (Auto) Baso # (Auto) PT INR PTT (Actin FS) D-Dimer Specimen Type Sample Site pH pCO2 pO2 HCO3 Base Excess Oxyhemoglobin ABG O2 Sat (Calculated) ABG O2 Saturation ABG Carboxyhemoglobin ABG Methemoglobin Quentin Test A-a O2 Difference Total Hemoglobin Lactate Liter Flow Blood Gas Modality FiO2 % Sodium Potassium Chloride Carbon Dioxide Anion Gap BUN Creatinine Estimated GFR/1.73 m2 BUN/Creatinine Ratio Glucose Calculated Osmolality Calcium Magnesium Total Bilirubin AST ALT Alkaline Phosphatase Creatine Kinase Troponin T 0.019 Oro-W-Ugsfcsxycaw Pept Total Protein Albumin Globulin Albumin/Globulin Ratio Orders Category Date Time Status Cardiac Monitoring DIRECTED Care 12/07/16 12:32 Active Saline Loc NOW Care 12/07/16 12:32 Active CHEST-PORTABLE [RAD] Stat Exams 12/07/16 12:32 Completed LUNG SCAN / VQ [NM] Stat Exams 12/07/16 15:05 Ordered ABG [RESP] Routine Lab 12/07/16 12:50 Completed CBC WITH ELECTRONIC DIFF [HEME] Stat Lab 12/07/16 13:03 Completed CK PROFILE [SP CHEM] Stat Lab 12/07/16 13:03 Completed COMPREHENSIVE METABOLIC PANEL [CHEM] Stat Lab 12/07/16 13:03 Completed D-DIMER [CHEM] Stat Lab 12/07/16 13:03 Completed MAGNESIUM [CHEM] Stat Lab 12/07/16 13:03 Completed PRO B-NATRIURETIC PEPTIDE Stat Lab 12/07/16 13:03 Completed PROTIME WITH INR [COAG] Stat Lab 12/07/16 13:03 Completed PTT [COAG] Stat Lab 12/07/16 13:03 Completed TROPONIN T Stat Lab 12/07/16 13:03 Completed UA NIMS W/REFLEX CULT [URINALYSIS] Stat Lab 12/07/16 14:33 Ordered Furosemide [Lasix] Med 12/07/16 15:11 Once 80 mg IV NOW ONE Lorazepam [Ativan] Med 12/07/16 15:04 Discontinued 1 mg IV NOW ONE EKG [EKG] Stat Ther 12/07/16 12:32 Ordered Result Diagrams: 12/07/16 13:03 12/07/16 13:03 - EKG 1 Time of EKG reading by physician:: 13:44 EKG Read and Signed by:: Leodan Holden EKG Interpretation (*Must complete 3 of following elements*): Abnormal Rate: 62 Rhythm: undetermined [place]: normal QRS: normal MD Interval: normal Comments: low voltage QRS, inferior infarct, age undetermined - XRAY 1 XRAY Study: Chest Impression: Normal (poss of mild interstitial pulmonary edema and CHF) XRAY Interpretation: poor inspiration, probally unchanged since 2017. - CONSULTS/PCP/HOSPITALIST Notification #1 *Consult/PCP/Hospitalist*: Admit to Scar/hospitalist Time Discussed: 15:13 Consult Disposition: Admit Departure - Departure Date of Disposition Decision: 12/07/16 Time of Disposition Decision: 15:13 DIAGNOSIS: Respiratory distress, Dysphagia, CHF (congestive heart failure) Disposition: HOME 01 Certified Medical Emergency: Emergent Condition: Stable Referrals and Follow-Ups: Hamzah Mejía DO [Primary Care Provider] - - Critical Care Note This patient required my direct & personal management of CC.: No This chart was documented by the indicated scribe, (Scar Almazan Scribe) and accurately reflects the services I performed and decisions made by me, Leodan Holden MD, as attested by the provider's signature.
--- NOTE | 2016-12-07 15:30 | EKG Report ---
Test Performed on : 12/07/2016 1:09:31 PM Test Reason : Chest Pain Blood Pressure : / mmHG Vent. Rate : 062 BPM Atrial Rate : 061 BPM P-R Int : 000 ms QRS Dur : 080 ms QT Int : 478 ms P-R-T Axes : 000 009 023 degrees QTc Int : 485 ms Undetermined rhythm Low voltage QRS Inferior infarct , age undetermined Abnormal ECG When compared with ECG of 30-NOV-2016 14:06, Current undetermined rhythm precludes rhythm comparison, needs review Nonspecific T wave abnormality now evident in Anterior leads Unconfirmed Result
[2016-12-07 15:38] LABS: URINE MICRO REVIEW NEEDED? NO; URINE SOURCE CLEAN CATCH
[2016-12-07 15:41] LABS: BILIRUBIN URINE NEGATIVE (NEGATIVE); BLOOD URINE SMALL (NEGATIVE); COLOR YELLOW; GLUCOSE URINE NEGATIVE (NEGATIVE); LEUKOCYTES URINE LARGE (NEGATIVE); NITRITE URINE POSITIVE (NEGATIVE); PROTEIN URINE NEGATIVE (NEGATIVE); SP GRAVITY URINE 1.004; TURBIDITY URINE CLEAR (CLEAR); UR EPITHELIAL CELLS <10 /HPF (<10); URINE BACTERIA 4+ /HPF; URINE CULTURE NEEDED? YES; URINE RBC <10 /HPF (<10); UROBILINOGEN URINE NORMAL (NORMAL)
--- NOTE | 2016-12-07 16:14 | Diag Imaging Result Doc PS360 ---
EXAM: LUNG SCAN / VQ HISTORY: SOB with elevated D-dimer TECHNIQUE: 39.6 mCi of technetium 99m DTPA aerosol for the ventilation study, 5.6 mCi of technetium 99m MAA for the perfusion portion. COMMENT: The anterior and posterior views from the perfusion study are available, the other usual images were not performed due to the patient's inability to tolerate being supine. There is no evidence of ventilation/perfusion mismatch. No absolute perfusion defects are demonstrated on the available images. IMPRESSION: Low probability for pulmonary embolus. Electronically signed by Evan Flower 12/07/2016 4:12 PM
--- NOTE | 2016-12-07 17:33 | HISTORY AND PHYSICAL ---
PRIMARY CARE PHYSICIAN: Dr. Hamzah Mejía. CATEGORY PLANNER: Dr. Sebastian Farah. CHIEF COMPLAINT: Dysphagia and shortness of breath. HISTORY OF PRESENT ILLNESS: Mrs. Robles is a 81-year-old female well known to our service. She has multiple medical problems including esophageal dysmotility, status post multiple EGDs and esophageal dilatations. The last time she was here was in August of this year. She was initially admitted for dysphagia. During that stay, she had developed a STEMI while in house and was emergently transferred to [facility] at which time she received coronary stenting. She reports since that time, she has been on her medication as prescribed. Around two days ago, she started having dysphagia with inability to swallow without significant discomfort. She has also had some worsening shortness of breath, but she denies any chest pain. She has chronic lower extremity edema and orthopnea. She denies any fever, chills, or cough. Her symptoms brought her to the ER today where she had a chest x-ray done. It showed poor inspiration. Possibility of mild interstitial pulmonary edema and congestive heart failure cannot be excluded. Her lab data shows that she has some mild hypercapnia and a proBNP of 5896. Urinalysis shows UTI as well. In the ER, she was given Lasix, and we are now going to admit her for further treatment and evaluation. PAST MEDICAL HISTORY: 1. Coronary artery disease, status post recent ST-elevation [place]. 2. Chronic dysphagia. 3. Morbid obesity. 4. Wheelchair and bedbound state. 5. History of CVA. 6. Hypertension. 7. Hyperlipidemia. 8. Paroxysmal atrial fibrillation. 9. Iron deficiency anemia. 10. Anxiety. 11. Chronic kidney disease. SURGICAL HISTORY: Coronary stenting, back surgery, cataract surgery, cholecystectomy, multiple EGDs. SOCIAL HISTORY: She is . is at the bedside. They have 3 children live here in [place]. FAMILY HISTORY: Significant for CAD, colon cancer and stomach cancer. ALLERGIES: Iodine. REVIEW OF SYSTEMS: Fourteen-point review of systems obtained and found to be negative with the exception of the HPI. HOME MEDICATIONS: 1. Atorvastatin 40 mg p.o. at bedtime. 2. Coreg 3.125 mg p.o. b.i.d. 3. Vitamin D 3, 5000 units p.o. daily. 4. Clopidogrel 75 mg daily. 5. Amaryl 2 mg b.i.d. 6. Atarax 25 mg p.o. b.i.d. 7. NovoLog FlexPen 15 units subcutaneous t.i.d. 8. Levemir FlexPen 25 units subcu chest. 9. Icar C, 1 daily. 10. Isosorbide mononitrate 30 mg p.o. b.i.d. 11. Ativan 0.5 mg p.o. t.i.d. 12. Dulera inhaler as directed. 13. NitroQuick sublingual every 5 minutes for chest pain for a total of 3 doses. 14. Klor-Con 20 mEq p.o. 15. Xarelto 15 mg p.o. at bedtime. 16. Requip 0.5 mg p.o. at bedtime. PHYSICAL EXAMINATION: VITAL SIGNS: Blood pressure is 152/98, heart rate 67, respiratory rate 20, O2 saturation 94% on 3 L. Temperature is 98 degrees. GENERAL: Morbidly obese, female, lying in the hospital bed in no acute distress. NEUROLOGIC: The patient is awake, alert, oriented. She follows commands without focal deficits. HEENT: Head is atraumatic, normocephalic. Pupils are equal, round, and reactive to light. Oral mucosa is moist and oropharynx is clear. NECK: Supple. Trachea is midline. Chest: Diminished at the bases with bibasilar crackles. CARDIOVASCULAR: Regular rate and rhythm. S1-S2 is noted. GASTROINTESTINAL: Soft, obese. Nondistended. Bowel sounds are hypoactive. EXTREMITIES: 1+ edema with diminished pulses bilaterally. DIAGNOSTIC DATA: Chest x-ray shows possibility of CHF. V/Q scan states low probability for PE. EKG shows normal sinus rhythm with nonspecific ST and T changes and inferior cues. LABORATORY DATA: WBC 6.45, hemoglobin 11.3, hematocrit 35.8, MCV 103.8, platelet count 204,000. PT 19.3. INR 1.77. D-dimer 0.73. ABG on nasal cannula, pH 7.4, CO2 of 56, O2 100. Bicarb 31.4. Sodium 143, potassium 3.5, chloride 102, CO2 of 30, anion gap 11. BUN 4, creatinine 1, glucose is 86. Calcium 8.4, bilirubin 1.03. AST 14, ALT 6. Alkaline phosphatase 84. Troponin 0.019. ProBNP 5896. Protein 5.8, albumin 3.3. UA shows urinary tract infection. ASSESSMENT AND PLAN: 1. Hypercarbic respiratory failure: Likely secondary to chronic heart failure. We will diurese, continue oxygen, DuoNebs and aggressive pulmonary toilet. 2. Dysphagia: We will order a barium swallow for the morning and consult with Dr. Farah. 3. Congestive heart failure: Diuresis has been started in the ER. We will continue this. Order strict I's and O's and daily weights. We will also order a limited echocardiogram given her ST-elevation OK just a few months ago. 4. Diabetes mellitus: Chronic and stable, continue home medications. 5. Hyperlipidemia: Chronic and stable, continue home medications. 6. Macrocytic anemia. We will continue her iron. 7. Urinary tract infection. Will add Rocephin. 8. Coronary disease. We will trend her enzymes. Check a limited echo. Monitor telemetry closely. 9. Paroxysmal atrial fibrillation: Chronic and stable, continue her home medications. Currently in sinus rhythm. We will continue anticoagulation as well. 10. Deep venous thrombosis prophylaxis is provided with her home anticoagulation. Further recommendations to follow. Dictated by DARRICK Delgadillo for Rd Suárez MD cc: DARRICK Delgadillo Addendum: I personally evaluated and examined the patient in conjunction to the INTER COM SERVICER and agreed with his assessment and plan. My exam showed lower ext venous stasis. No stridor MTDD
[2016-12-07] MEDS ORDERED: ROCEPHIN 1 GM/NS 1 GM/50 ML IVPB IV ONE (17:44)
[2016-12-07] MEDS ORDERED: NITROGLYCERIN SL PRN (20:30)
[2016-12-07] MEDS ORDERED: HYDROXYZINE PO PRN (20:30)
[2016-12-07] MEDS ORDERED: DUONEB (A & A) INH PRN (20:30)
[2016-12-07] MEDS ORDERED: ATIVAN PO PRN (20:30)
[2016-12-07] MEDS ORDERED: XARELTO PO SCH (21:00)
[2016-12-07] MEDS: REQUIP PO SCH (21:07)
[2016-12-07] MEDS: KLOR-CON PO SCH (21:07)
[2016-12-07] MEDS: LIPITOR PO SCH (21:07)
[2016-12-07] MEDS: COREG PO SCH (21:07)
[2016-12-07] MEDS: IMDUR PO SCH (21:07)
[2016-12-07] MEDS: DUONEB (A & A) INH SCH ×2 (23:10→23:13)
[2016-12-08] MEDS: ROCEPHIN 1 GM/NS 1 GM/50 ML IVPB IV SCH ×2 (02:08→21:30)
[2016-12-08] MEDS: AMARYL PO SCH ×2 (02:09→14:36)
[2016-12-08] MEDS: HUMALOG SUBQ SCH ×8 (02:09→21:45)
[2016-12-08] MEDS: LEVEMIR SUBQ SCH ×2 (02:09→21:45)
[2016-12-08] MEDS: DUONEB (A & A) INH SCH ×6 (03:13→23:24)
[2016-12-08 07:02] LABS: HEMATOCRIT 34.4 % (37.0-47.0); HEMOGLOBIN 10.6 g/dL (12.0-16.0); MCHC 30.8 g/dL (33-37); MCV 107.2 FL (81-99); MPV 10.3 FL (7.4-10.4); RBC 3.21 XMIL (4.2-5.4)
[2016-12-08 07:09] LABS: CALCIUM 8.2 mg/dL (8.8-10.2)
[2016-12-08] MEDS: DULERA 200 MCG/5 MCG INHALER INH SCH ×2 (07:40→20:00)
[2016-12-08] MEDS: LASIX IV SCH ×2 (10:35→21:31)
--- NOTE | 2016-12-08 11:59 | Diag Imaging Result Doc PS360 ---
EXAM: BA SWALLOW W/VIDEO SPEECH THER HISTORY: dysphagia TECHNIQUE: Modified barium swallow with speech therapist fluoroscopy time is 20 seconds. Total dose is 5 mg. COMPARISON: None. FINDINGS: Thickened thin barium swallow. There is a prominent cricopharyngeus muscle during each swallowing. No aspiration occurred during the exam. IMPRESSION: Prominent cricopharyngeus muscle. Electronically signed by Rick Paiz 12/08/2016 11:57 AM
[2016-12-08] MEDS: IMDUR PO SCH ×2 (14:35→21:31)
[2016-12-08] MEDS: COREG PO SCH ×2 (14:35→21:31)
[2016-12-08] MEDS: PLAVIX PO SCH (14:35)
[2016-12-08] MEDS: ICAR-C PLUS PO SCH (14:35)
[2016-12-08] MEDS: PROTONIX PO SCH (14:36)
[2016-12-08] MEDS: VITAMIN D PO SCH (14:49)
--- NOTE | 2016-12-08 15:19 | ECHO REPORT ---
ORDER DATE: 12/07/2016 MEASUREMENTS: Left ventricular end-diastolic 4.9. Systolic diameter 3.5. Septal thickness 1.2. Posterior wall thickness 1.2. Left atrium 3.7. Aortic root 3.5. SUMMARY: 1. Technically difficult study due to limited acoustic window quality. 2. Aortic, mitral and tricuspid valves are without structural abnormality evident. Doppler not performed. Pulmonic valve not well demonstrated. The aortic root is normal in size. 3. Normal left ventricular chamber size and wall thickness suggested on 2 dimensional images. Estimated left ejection fraction appears to be at least 55%. Left atrium, right atrium, and right ventricle are normal size with grossly preserved right ventricular systolic force. 4. No pericardial effusion. CONCLUSIONS: 1. Technically difficult study. Study limited to 2 dimensional. 2. No significant valvular structure abnormality appreciated. 3. Estimated left ejection fraction at least 55%. No obvious wall motion abnormalities can be appreciated. Left atrium appears mildly enlarged. Right atrium and right ventricle are of normal size with grossly preserved right ventricular systolic function. 4. No pericardial effusion. CONCLUSIONS: 1. Technically difficult study. Study limited to 2 dimensional only. 2. No significant valvular structure abnormality appreciated. 3. Estimated left ejection fraction at least 55%. 4. Mild left atrial enlargement. cc: MD Bon Hooker CRNP MTDD
--- NOTE | 2016-12-08 15:48 | CONSULTATION ---
DATE OF CONSULTATION: 12/08/2016 REASON FOR REFERRAL: Dysphagia. HISTORY OF PRESENT ILLNESS: This is a 81-year-old, white female, who we had seen in the hospital in August. At that time, she was also admitted for dysphagia. An EGD was done that showed an esophageal ring. Dilation was performed. She states it did help, but over the last several days she has had worsening dysphagia. She has had trouble with foods and she has been crushing her medications and eating them with applesauce. She had also had some worsening shortness of breath. She was admitted to the hospital with further evaluation. A chest x-ray showed poor inspiration, possibility of interstitial pulmonary edema, congestive heart failure. She had mild hypercapnia and a proBNP of 5896. She was also noticed to have a urinary tract infection. She had a modified barium swallow done today that showed prominent cricopharyngeus muscle. There was no noted aspiration during the exam. She currently has O2 by nasal cannula in place. She had also noticed an episode of rectal bleeding. She had went to the emergency room. She called and made an office visit, but canceled that appointment because the bleeding resolved. She does report problems with constipation. Of note, while she was in the hospital in August she had a STEMI and was transferred to [facility] and had coronary stent placement. PAST MEDICAL HISTORY: recent STEMI, status post stent placement. Chronic dysphagia. Morbid obesity. History of stroke. Hypertension. Hyperlipidemia. Atrial fibrillation. Anxiety. Chronic kidney disease. History of anemia. PAST SURGICAL HISTORY: Coronary stenting in August. Back surgery. Cataract surgery. Cholecystectomy. EGDs with dilation. ALLERGIES: Iodine, causing a rash. HOME MEDICATIONS: Requip 0.5 mg every night. Xarelto 50 mg every night. Klor- Con 20 mEq every night. Nitroglycerin 0.4 mg sublingual as needed. Dulera 2 puffs inhaler twice daily. Insulin, Levemir 25 units every night. NovoLog 15 units subcutaneous 3 times daily. Atorvastatin 40 mg every night. Protonix 40 mg daily. Ativan 0.5 mg 3 times a day as needed. Imdur 30 mg twice daily. Icar C 1 daily. Atarax 25 mg twice daily as needed. Amaryl 2 mg twice daily. Clopidogrel 75 mg daily. Vitamin D3 5000 units daily. Coreg 3.125 twice daily. SOCIAL HISTORY: She is . is at the bedside. She has 3 children. REVIEW OF SYSTEMS: Per HPI. PHYSICAL EXAMINATION: Vital Signs: Temperature 97.6 degrees, pulse 69, respirations 20, blood pressure 147/54. Generally: The patient is awake and alert. No acute distress. HEENT: Normocephalic, atraumatic. Pupils equal, round, reactive to light. Sclerae nonicteric. Respiratory: Some decreased breath sounds. Cardiovascular: Regular rate and rhythm. Abdomen: Morbid obesity. Soft, nontender, positive bowel sounds. Extremities: Bilateral lower extremity edema noted. DIAGNOSTIC RESULTS: Modified barium swallow done today showed prominent cricopharyngeus muscle with no evidence of aspiration during the examination. V/Q scan showed low probability of pulmonary embolus. Chest x-ray showed poor inspiration. Possible mild interstitial pulmonary edema and congestive heart failure could not be excluded. LABORATORY: Hematology: White count 6.86, hemoglobin 10.6, hematocrit 34.4, MCV 107.2, platelets 213,000. Coagulation: ProTime 19.3, INR 1.77, PTT 33.9, D-dimer 0.73. Chemistry: Sodium 146 potassium 4, chloride 103, CO2 33, BUN 6, creatinine 1.2, glucose 127, calcium 8.2, magnesium 1.6. Total bilirubin 1.03. AST 14, ALT 6, alkaline phosphatase 84, creatine kinase 64. Troponin 0.028. ProBNP 5896. Urinalysis showed small amount of blood, positive nitrite , large leukocytes and 10-20 WBCs. ASSESSMENT AND PLAN: 1. Dysphagia. History of dilations last done in August when in the hospital. 2. Barium swallow showing prominent cricopharyngeus muscle. 3. Dyspnea with x-ray showing possible pulmonary edema versus congestive heart failure. 4. History of ST-elevation myocardial infarction in August with coronary stenting at [facility]. 5. Urinary tract infection. 6. Morbid obesity. PLAN: Continue supportive care. We will start clear liquids. I have discussed with the patient the importance of chewing her food well, take small bites, drink between bites, sit upright after eating. She is at risk of sedation due to her health problems. I will discuss this case further with Dr. Farah. Further plans will be made by him. Continue proton pump inhibitor. Thank you for this consultation. Dictated by DARRICK Sam for Sebastian Farah MD cc: DARRICK Bautista MD [facility]
--- NOTE | 2016-12-08 16:04 | PROGRESS NOTE ---
DATE: 12/08/2016 SUBJECTIVE: The patient is feeling well. No complaint today. She still has the same problem with swallowing. She does not have any fever or chills. OBJECTIVE: Vital signs: Blood pressure 147/54, pulse of 69, respirations 20, temperature 97.6 degrees, sat of 94% on 2 L. General: Morbidly obese, white female, in no acute distress. HEENT: Anicteric. Clear conjunctivae. Neck: Supple. No JVD. No bruit. Cardiovascular: S1, S2. Normal rate and rhythm. No murmur, rubs, or gallops. Pulmonary: Clear to auscultation bilaterally. Gastrointestinal: Soft, nontender, nondistended. Normoactive bowel sounds. Musculoskeletal: No clubbing, cyanosis, or edema. LABORATORY: White count 6.86, hemoglobin 10.6, hematocrit 34.4, platelets 213,000. Chemistry: Sodium 146, potassium 4.0, chloride 103, bicarbonate 33, BUN 6, creatinine 1.2, glucose 127. Modified barium swallowing test showed a prominent cricopharyngeal muscle. No aspiration. ASSESSMENT AND PLAN: This is a 81-year-old white female admitted to the hospital with a complaint of difficulty swallowing. 1. Dysphagia. Barium swallowing as noted above. GI was consulted. The patient had esophageal ring dilated back in August. She did well for a little while but apparently she is having the same problem with swallowing especially solids. Able to swallow liquids just fine. We will wait for further recommendations from GI. Continue supportive care. 2. Diabetes. We will continue Levemir and Humalog plus sliding scale insulin. The patient is also on Amaryl b.i.d. We will hold Amaryl for now since the patient may be NPO for procedures. 3. Morbid obesity. Education provided. 4. History of atrial fibrillation. The patient The patient will need intervention. CODE STATUS: Patient is a full code. Her is her surrogate decision maker.
[2016-12-08] MEDS ORDERED: DUONEB (A & A) ONE (19:05)
[2016-12-08] MEDS: KLOR-CON PO SCH (21:31)
[2016-12-08] MEDS: REQUIP PO SCH (21:31)
[2016-12-08] MEDS: LIPITOR PO SCH (21:32)
[2016-12-09] MEDS: DUONEB (A & A) INH SCH ×3 (02:41→11:50)
[2016-12-09] MEDS: HUMALOG SUBQ SCH ×4 (06:28→11:30)
[2016-12-09 07:08] LABS: HEMATOCRIT 33.5 % (37.0-47.0); HEMOGLOBIN 10.4 g/dL (12.0-16.0); MCH 32.2 PG (27-31); MCV 103.7 FL (81-99); MPV 10.3 FL (7.4-10.4); RBC 3.23 XMIL (4.2-5.4)
[2016-12-09 07:29] VITALS: BP 130/51
[2016-12-09 07:36] LABS: POTASSIUM 3.7 mmol/L (3.5-5.1)
[2016-12-09] MEDS: DULERA 200 MCG/5 MCG INHALER INH SCH (08:27)
[2016-12-09] MEDS: IMDUR PO SCH (10:07)
[2016-12-09] MEDS: VITAMIN D PO SCH (10:07)
[2016-12-09] MEDS: ICAR-C PLUS PO SCH (10:07)
[2016-12-09] MEDS: COREG PO SCH (10:07)
[2016-12-09] MEDS: PLAVIX PO SCH (10:07)
[2016-12-09] MEDS: PROTONIX PO SCH (10:08)
[2016-12-09] MEDS: LASIX IV SCH (10:08)
--- NOTE | 2016-12-09 11:13 | PROGRESS NOTE ---
DATE: 12/09/2016 SUBJECTIVE: The patient is doing well. She ate her breakfast just fine this morning. No fever. No chills. No pain with swallowing. OBJECTIVE: Vital Signs: Blood pressure 130/51, pulse of 74, respiration 18, temperature 97.7 degrees, sat of 87-90% on 2 L. General Appearance: Morbidly obese, white female in no acute distress. HEENT: Anicteric. Clear conjunctivae. Neck: Supple. No JVD. No bruit. Cardiovascular: S1, S2. Normal rate and rhythm. No murmur, rubs, or gallops. Pulmonary: Clear to auscultation bilaterally. GI: Soft, nontender, nondistended. Normoactive bowel sounds. Musculoskeletal: No clubbing, cyanosis, but trace edema on her lower extremities. ASSESSMENT AND PLAN: This is a 81-year-old admitted to the hospital for dysphagia. 1. Dysphagia. The patient had the modified barium swallowing that showed just a permanent cricopharyngeus muscle. No evidence of obstruction. She has been eating well. GI was consulted. No further plan for this patient from this point. If needed they can follow up with GI as an outpatient. 2. Urinary tract infection. Grew out Escherichia coli that is galindo sensitive. We will put the patient on Cipro. The patient is asymptomatic therefore for 5 days. Her chronic medical issues are stable. We will discharge the patient home today.
--- NOTE | 2016-12-09 14:56 | DISCHARGE SUMMARY ---
ADMISSION DATE: 12/07/2016 DISCHARGE DATE: 12/09/2016 CONSULTATIONS: Dr. Farah with Gastroenterology PERTINENT PROCEDURES: 1. V/Q scan showed low probability for pulmonary emboli. 2. Echocardiogram EF of 55%. 3. Modified barium swallow showed prominent cricopharyngeus muscle with no aspiration during the exam. DISCHARGE DIAGNOSES: 1. Dysphagia status post modified barium swallow that showed prominent cricopharyngeus muscle. No evidence of obstruction or aspiration. The patient has been eating well followed by GI with no further plans for the patient at the moment. Can follow up as outpatient. 2. E. Coli UTI that is galindo sensitive. The patient will be discharged on p.o. antibiotics. 3. Diabetes mellitus. Continue Levemir at home as well as Amaryl. 4. Morbid obesity. Patient was educated on diet and exercise. 5. Atrial fibrillation history. The patient has been stable. HOSPITAL COURSE: Briefly, Ms. Robles is a 81-year-old female, well known to our service. Multiple medical comorbidities including esophageal dysmotility status post multiple EGDs and esophageal dilatations and many others. Her last admission in August of this year. She was initially admitted for dysphagia. During that stay, she developed a STEMI while in house and was emergently transferred to [facility] for coronary stenting. Before coming to the ED on this admission two days prior, she started having dysphagia with inability to swallow without significant discomfort. She was also having some worsening shortness of breath but denied chest pain. Her workup in the ED showed mild hypercapnia and a proBNP was 5896. Urinalysis showed a UTI. She was given Lasix in the ED. She was to continue with diuresis, supplemental O2 as well as bronchodilators and aggressive pulmonary toilet. She underwent a barium swallow with a consult for GI who did not plan on doing anything further until outpatient. The patient was initiated back on a clear liquid diet with GI. She was also thoroughly educated on the importance of chewing her food well, taking small bites and drinks between bites and sitting upright after eating. As far as her UTI, it did grow out E coli that is galindo sensitive. She will be placed on Cipro. She has been asymptomatic therefore for 5 days. Her chronic medical issues are stable and she is being discharged home with her today. VITAL SIGNS: Temperature is 97.7 degrees, heart rate 74, respirations 18, blood pressure is 130/51. DISCHARGE MEDICATIONS: 1. 40 mg p.o. at bedtime. 2. Coreg 3.125 mg p.o. b.i.d. 3. Vitamin D 5000 units p.o. daily. 4. Cipro 250 mg p.o. b.i.d. for 5 days. 5. Plavix 75 mg p.o. daily. 6. Amaryl 2 mg p.o. b.i.d. 7. Hydroxyzine 25 mg p.o. b.i.d. p.r.n. 8. NovoLog FlexPen 15 units subcutaneously t.i.d. 9. Levemir 25 units subcutaneous at bedtime. 10. Icar C 1 each p.o. daily. 11. Imdur 30 mg p.o. b.i.d. 12. Ativan 0.5 mg p.o. t.i.d. p.r.n. 13. Dulera 200 mcg 5 mcg inhaler 2 puffs inhaled b.i.d. 14. NitroQuick 0.4 mg sublingual p.r.n. 15. Protonix 40 mg p.o. daily. 16. Klor-Con 20 mEq p.o. at bedtime. 17. Xarelto 15 mg p.o. at bedtime. 18. Requip 0.5 mg p.o. at bedtime. FOLLOWUP: The patient is being discharged home with her . 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 The patient can return to the ED for any worsening of symptoms. Dictated by DARRICK Sung for Rd Suárez MD cc: Hamzah Mejía DO Addendum: I personally evaluated and examined the patient in conjunction to the SENIOR RESERVATIONS AGENT and agreed with her disposition MTDD
== END 2016-12-09 15:35 | disposition home health service (06) ==
LOC: SUPCPDRO → ED 12:00 → 3N 19:53
PROVIDERS: ATTEND Internal Medicine

== ENCOUNTER 2017-01-31 17:45 | Inpatient (IN) ==
[2017-01-31] MEDS ORDERED: ASPIRIN PO STA (18:28)
[2017-01-31 18:47] LABS: MANUAL DIFF NEEDED? NO
--- NOTE | 2017-01-31 18:52 | Diag Imaging Result Doc PS360 ---
EXAM: CHEST-PORTABLE HISTORY: SOB TECHNIQUE: AP portable upright at 1845 COMMENT: There is cardiomegaly and increased pulmonary vascularity with perihilar pulmonary edema. The latter has worsened slightly particularly with regard to the right lung since the previous study of 12/07/2016. IMPRESSION: Slightly worsened pulmonary edema. Electronically signed by Evan Flower 01/31/2017 6:50 PM
[2017-01-31 18:58] LABS: EOS% 5.8 % (0.0-10.0); HEMATOCRIT 39.4 % (37.0-47.0); HEMOGLOBIN 11.8 g/dL (12.0-16.0); LYMPH# 0.81 X1000 (1.2-3.4); LYMPH% 15.5 % (20.5-51.1); MCH 30.9 PG (27-31); MCHC 29.9 g/dL (33-37); MCV 103.1 FL (81-99); MONO# 0.81 X1000 (0.11-0.59); MONO% 15.5 % (1.7-9.3); MPV 11.3 FL (7.4-10.4); NEUT% 62.2 % (42.2-75.2); PLT 184 X1000 (130-400); RBC 3.82 XMIL (4.2-5.4)
[2017-01-31 19:03] LABS: INR 1.59; PROTIME 17.2 Seconds (9.2-11.7); PTT 31.6 Seconds (22.0-36.0)
[2017-01-31 19:27] LABS: CALCIUM 8.7 mg/dL (8.8-10.2); MAGNESIUM 1.6 mg/dL (1.5-2.7); POTASSIUM 4.3 mmol/L (3.5-5.1); TOTAL BILIRUBIN 0.86 mg/dL (0.20-1.00); TOTAL PROTEIN 5.8 g/dL (6.3-8.3)
[2017-01-31] MEDS ORDERED: NITROGLYCERIN TOP ONE (21:27)
[2017-01-31] MEDS ORDERED: LASIX IV ONE (21:27)
--- NOTE | 2017-01-31 21:27 | PROVIDER DOCUMENTATION ---
This chart was entered by Lanny Johnson Scribe, acting as scribe for Scar Roberts MD. HPI-General Adult - General Chief Complaint: Weakness Stated Complaint: weakness slurred speech x 1 week Time Seen by Provider: 01/31/17 18:09 Source: patient, family Allergies/Adverse Reactions: Patient Allergies Allergy/AdvReac Type Severity Reaction Status Date / Time iodine Allergy Intermediate RASH Verified 01/31/17 18:20 Home Medications: Home Medication List Medication Instructions Recorded Confirmed Last Taken Type Hydroxyzine 25 mg PO BID PRN 10/26/12 01/31/17 12/07/16 History Isosorbide Mononitrate E.r. [Imdur] 30 mg PO BID 10/26/12 01/31/17 01/31/17 07: 00 History Pantoprazole Sodium [Protonix] 40 mg PO DAILY 10/26/12 01/31/17 01/31/17 12:00 History Glimepiride [Amaryl] 2 mg PO BID #0 tablet 10/30/12 01/31/17 01/31/17 07:00 Rx Ropinirole HCl [Requip] 0.5 mg PO HS 09/03/14 01/31/17 01/30/17 History Iron Carbonyl/Vit C/Vit B12/FA 1 each PO DAILY 08/23/16 01/31/17 01/31/17 12:00 History [Icar-C Plus] Lorazepam [Ativan] 0.5 mg PO TID PRN 08/23/16 01/31/17 12/07/16 History Potassium Chloride E.r. [Klor-Con] 20 meq PO QHS 08/23/16 01/31/17 01/30/17 History Atorvastatin Calcium 40 mg PO QHS 11/30/16 01/31/17 01/30/17 History Carvedilol [Coreg] 3.125 mg PO BID 11/30/16 01/31/17 01/31/17 07:00 History Clopidogrel Bisulfate [Clopidogrel] 75 mg PO DAILY 11/30/16 01/31/17 01/31/17 12 :00 History Rivaroxaban [Xarelto] 15 mg PO QHS 11/30/16 01/31/17 01/30/17 History Cholecalciferol (Vitamin D3) 50,000 unit PO DAILY 01/31/17 01/31/17 01/31/17 12: 00 History [D3-50] Mometasone/Formoterol [Dulera 200 1 puff INH BID 01/31/17 01/31/17 01/31/17 07: 00 History Mcg/5 Mcg Inhaler] - History of Present Illness -Gen Adult Nature of Presenting Problems: 82 Y/O F presents to ED with General Adult. Pt is complaining of a 5 day hx of left arm, left wrist and left leg swelling. Family states pt had a biopsy done on her left leg on Tuesday unknown reason. Pt family states that for 5 days she has also had slurred speech. pt has a hx of diabetes, SOB recently O2 was changed to 3L about 1 week ago. Pt has a hx of 3 stints, 1 with 80% blockage. Dr.Johnson little Pt Location of Pain/Injury: reports: upper extremity, lower extremity Pain Radiation: reports: no radiation Severity: reports: moderate Onset/Duration: reports: 5 days ago Timing: reports: still present Associated Symptoms: reports: muscle aches, other (slurred speech, swelling of extremities). denies: chest pain, diaphoresis, diarrhea, dizziness, fever/ chills, headaches, nausea, vomiting Review of Systems - Adult - REVIEW OF SYSTEMS - ADULT Constitutional: denies: chills, fever Eyes: reports: no symptoms reported Ears, Nose, Mouth & Throat: reports: no symptoms reported Cardiovascular: reports: no symptoms reported Respiratory: reports: no symptoms reported Gastrointestinal: reports: no symptoms reported Genitourinary: reports: no symptoms reported Musculoskeletal: reports: other (extremity swelling) Integumentary: reports: no symptoms reported Neurological: reports: slurred speech. denies: dizziness/vertigo, headache/ migraines, numbness, tremors Psychiatric: reports: no symptoms reported Endocrine: reports: no symptoms reported Hematologic/Lymphatic: reports: no symptoms reported Allergic/Immunologic: reports: no symptoms reported All Other Systems: Reviewed and Negative Past History - Adult - PAST MEDICAL HISTORY-ADULT Review of Records: reports: Old Records Reviewed, Nursing Assessment Review, Medications Reviewed, Social history reviewed & non-contributory. Major Childhood Illnesses: reports: denies history Cardiovascular: reports: CAD, CHF, HTN, hyperlipidemia Respiratory: reports: denies history Gastrointestinal: reports: denies history Obstetrical/Gynecological: reports: denies history Genitourinary: reports: denies history Musculoskeletal: reports: denies history Neurological: reports: CVA Endocrine/Immune: reports: denies history Other Conditions: reports: denies history - PRIOR SURGERIES/PROCEDURES Surgical/Procedure History: reports: cholecystectomy, cardiac stent, back/neck - IMMUNIZATION STATUS Childhood Immunizations: See Nurse Assessment Flu Vaccine: See Nurse Assessment - FAMILY HISTORY Family History: reviewed, not pertinent Physical Exam-General - CONSTITUTIONAL General Appearance: alert, mild distress, obese - EYES Eyes: pink conjunctivae - HEAD, EARS, NOSE, MOUTH & THROAT HENMT: normal ENT inspection, TMs normal, pharynx normal - NECK Neck: supple - CARDIOVASCULAR Cardiovascular: regular rate, rhythm - GASTROINTESTINAL (ABDOMEN) Abdominal Exam: tenderness, other (pedal edema) - MUSCULOSKELETAL Back Exam: no CVA tenderness Extremity: pedal edema (bilateral legs, and left forearm), swelling, tenderness - SKIN Integumentary: warm/dry - PSYCHIATRIC Psych/Mental Status: normal mood/affect, normal thought process, oriented x 3 Progress - PLAN OF CARE/RESULTS Progress/Plan/Lab Results: Vital Signs - 8 hr 01/31/17 17:58 01/31/17 18:18 Temperature 98.5 F Pulse Rate 71 65 Respiratory Rate 19 21 Blood Pressure 162/70 164/73 O2 Sat by Pulse Oximetry 94 L 97 Result Diagrams: 01/31/17 18:32 01/31/17 18:32 - EKG 1 Time of EKG reading by physician:: 18:52 EKG Read and Signed by:: Scar Roberts EKG Interpretation (*Must complete 3 of following elements*): Normal Rate: 72 Rhythm: NSR QRS: other (LOW VOLTAGE) Comments: Abnormal ECG - CONSULTS/PCP/HOSPITALIST Notification #1 *Consult/PCP/Hospitalist*: Time Discussed: 21:19 Reason/Comments: Management Services Technician Service Consult Disposition: Will see in ED Departure - Departure Date of Disposition Decision: 01/31/17 Time of Disposition Decision: 21:00 DIAGNOSIS: Congestive heart failure (CHF) Qualifiers: Congestive heart failure type: unspecified congestive heart failure type Congestive heart failure chronicity: acute on chronic Qualified Code(s): I50.9 - Heart failure, unspecified Disposition: ADMITTED INPATIENT 09 Certified Medical Emergency: Emergent Condition: Good Referrals and Follow-Ups: Hamzah Mejía DO [Primary Care Provider] - - Critical Care Note This patient required my direct & personal management of CC.: No This chart was documented by the indicated scribe, (Lanny Johnson, Fernando) and accurately reflects the services I performed and decisions made by me, Scar Roberts MD, as attested by the provider's signature.
[2017-01-31] MEDS ORDERED: ZOFRAN IV PRN (21:58)
[2017-01-31] MEDS ORDERED: LOVENOX SUBQ SCH (22:00)
[2017-01-31 22:52] LABS: URINE SOURCE CATH
[2017-01-31 22:59] LABS: BILIRUBIN URINE NEGATIVE (NEGATIVE); BLOOD URINE TRACE (NEGATIVE); COLOR ORANGE; GLUCOSE URINE NEGATIVE (NEGATIVE); LEUKOCYTES URINE LARGE (NEGATIVE); NITRITE URINE POSITIVE (NEGATIVE); PH URINE 5.5; PROTEIN URINE TRACE mg/dL (NEGATIVE); SP GRAVITY URINE 1.008; TURBIDITY URINE TURBID (CLEAR); UROBILINOGEN URINE NORMAL (NORMAL)
[2017-01-31 23:01] LABS: URINE MICRO REVIEW NEEDED? YES
[2017-01-31 23:11] LABS: UR EPITHELIAL CELLS <10 /HPF (<10); URINE BACTERIA 4+ /HPF; URINE CULTURE NEEDED? YES; URINE RBC <10 /HPF (<10); URINE WBC TNTC /HPF (<10)
[2017-02-01 06:33] LABS: MANUAL DIFF NEEDED? NO
[2017-02-01 06:40] LABS: BASO% 0.6 % (0.0-0.8); EOS# 0.33 X1000 (0.0-0.7); EOS% 6.3 % (0.0-10.0); HEMATOCRIT 36.4 % (37.0-47.0); HEMOGLOBIN 10.8 g/dL (12.0-16.0); LYMPH# 1.04 X1000 (1.2-3.4); LYMPH% 19.7 % (20.5-51.1); MCH 30.3 PG (27-31); MCHC 29.7 g/dL (33-37); MCV 102.2 FL (81-99); MONO# 0.97 X1000 (0.11-0.59); MONO% 18.4 % (1.7-9.3); PLT 188 X1000 (130-400); RBC 3.56 XMIL (4.2-5.4)
[2017-02-01 07:01] LABS: AGAP 6; ALBUMIN 2.9 g/dL (3.5-5.0); ALKALINE PHOSPHATASE 94 U/L (32-104); BUN 6 mg/dL (8-22); CALCIUM 8.8 mg/dL (8.8-10.2); CHLORIDE 103 mmol/L (98-107); COSMO 290; GOT 9 U/L (10-30); GPT < 5 U/L (10-36); POTASSIUM 3.6 mmol/L (3.5-5.1); SODIUM 146 mmol/L (136-145); TCO2 37 mmol/L (25-35); TOTAL PROTEIN 5.7 g/dL (6.3-8.3)
[2017-02-01 07:02] LABS: INR 1.42; PROTIME 15.2 Seconds (9.2-11.7)
[2017-02-01] MEDS: NS 1,000 ML IV SCH ×2 (07:13→21:26)
[2017-02-01] MEDS: ROCEPHIN 1 GM/NS 1 GM/50 ML IVPB IV SCH (07:13)
--- NOTE | 2017-02-01 07:36 | EKG Report ---
Test Performed on : 02/01/2017 01:04:56 AM Test Reason : Chest Pain Blood Pressure : / mmHG Vent. Rate : 073 BPM Atrial Rate : 076 BPM P-R Int : 000 ms QRS Dur : 078 ms QT Int : 372 ms P-R-T Axes : 000 033 039 degrees QTc Int : 409 ms Accelerated Junctional rhythm. Low voltage QRS Nonspecific T wave abnormality Abnormal ECG When compared with ECG of 31-JAN-2017 18:52, (Unconfirmed) Junctional rhythm. has replaced Sinus rhythm. Borderline criteria for Inferior infarct are no longer present Confirmed by Hamzah Mejía DO ([id number]) on 02/05/2017 11:18:08 AM
[2017-02-01 07:41] LABS: VITAMIN D 25 HYDROXY 17.6 NG/DL
--- NOTE | 2017-02-01 08:18 | HISTORY AND PHYSICAL ---
ATTENDING PHYSICIAN: Dr. Hamzah Mejía. ADMITTING PHYSICIAN: Dr. Hamzah Mejía. CHIEF COMPLAINT: Slurred speech, left upper extremity weakness, and generalized edema. HISTORY OF PRESENT ILLNESS: Ms. Robles is a 81-year-old patient of mine, who presents for evaluation of several days of worsening edema, and as reported by the , some slurred and unintelligible speech, and questionable upper and lower extremity weakness. She does have a history of an MRI in 2008 for subacute infarct within the left mid brain, and a subsequent MRI in 08/2009. She has a historical event within the toribio dated 2012. Her most recent significant medical history has to do with being hospitalized in August of this year after having a myocardial infarction and having a stent placed within her heart. She was subsequently seen in the [facility] Medicine [facility] in November for shortness of breath, and admitted to the hospital at that time for congestive failure. The states that last week, about , her speech became unintelligible, and she became more confused. They have been receiving home health care for lymphedema. They do not have a good explanation as to why they waited through the weekend until Tuesday evening to call the ambulance or even to call myself in that she is a private patient. She presents to the emergency room unannounced for further evaluation and medical management. 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 FAMILY HISTORY: Father secondary to MD in 1955. Mother at 84 secondary to old age. She is the lone survivor of her family. She is with 2 children and 1 adopted child, ages between 53 and 56. She has 5 grandchildren and no great grandchildren. She has been for 50 years. She is a nonsmoker, nondrinker. PAST SURGICAL HISTORY: Includes back surgery of the lumbosacral spine in 1989, cataract surgery in 2007 on the right and 2008 on the left, cholecystectomy in 1973 secondary to cholelithiasis. HOSPITALIZATIONS: In 2004 for right stent placement, in 2006 for acute MD with right coronary artery thrombosis, in 2008 for CHF, unstable angina, and renal insufficiency, in 02/2011 for ankle fracture and non-STEMI, also urinary tract, respiratory failure, and acute failure, in 10/2012 for CHF, edema, and hypoxia, admissions in the winter of 2008 for acute MD, admission in 11/2015 for congestive heart failure, last annual exam in 12/2015. MEDICATIONS ON ADMISSION: Include sublingual nitroglycerin, multivitamin 1 p.o. daily, aspirin 81 mg once daily, Dulera 5/200 mcg 2 puffs twice daily, Amaryl 2 mg p.o. b.i.d., hydralazine 25 mg 1 p.o. b.i.d., Icar-C 1 p.o. daily, isosorbide mononitrate 30 mg b.i.d., magnesium 400 mg p.o. daily, Protonix 40 mg p.o. daily, potassium chloride 20 mEq p.o. daily, Requip 0.5 mg p.o. at bedtime, vitamin D supplement [id number] 2000 international units daily, Ativan 1 mg p.o. b.i.d., carvedilol 3.125 mg p.o. b.i.d., Lipitor 40 mg p.o. daily, Plavix 75 mg p.o. daily, and Xarelto 15 mg p.o. daily. Additional medications include insulin, NovoLog FlexPen 15 units t.i.d. and Levemir 25 units at bedtime. REVIEW OF SYSTEMS: Significant for clinic visit in September following hospitalization for stent placement on 09/14/2016. The patient, as recently as last summer, had lost approximately 25 pounds of intentional weight loss secondary to diet, lifestyle, and portion control. Her most recent hemoglobin A1c with annual assessment in the summer noted to be 7.9 with an average sugar of 180. The patient does have some significant issues with obstructive sleep apnea in that she is noncompliant with CPAP, and intermittently uses oxygen at night, which likely contributes to her ongoing congestive failure. She has chronic lymphedema, which is multifactorial, including obstructive sleep apnea, chronic venous hypertension, failure to be compliant with diuretic therapy, and a historical low-normal EF. Her renal failure with creatinine ranging between 1.1 and 1.3. History of paroxysmal atrial fibrillation, for which she is medicated with Xarelto, and history of stents, for which she is medicated with Plavix. The patient had a significant amount of change in medicines when she was hospitalized in August, with DIANNA inhibitor being held, angiotensin receptor being held, Lasix being held, and Zocor being held. She is also followed locally here by Dr. Javier Mejía. PHYSICAL EXAMINATION: VITAL SIGNS: As per chart. GENERAL: This is a morbidly obese female, appearing in no acute distress, although noticeably tachypneic. She is able to speak in full sentences. HEENT: Normocephalic, atraumatic. Oral mucosal membranes are extremely dry. She is able to speak with understanding. The states that she had some facial droop. This is not fully appreciated on exam. NECK: Obese and soft without bruits. CARDIOVASCULAR: Distant heart sounds, but with regular rhythm and rate. I do not appreciate any murmurs. PULMONARY: Distant lung sounds secondary to morbid obesity. ABDOMEN: Protuberant with tenderness appreciated in the left lower quadrant to the point of eliciting a yelping response from the patient. Bowel sounds are present, but diminished. GENITOURINARY AND RECTAL: Deferred. EXTREMITIES: The presence of compression bandages in the lower extremity are noted secondary to lymphedema. NEUROLOGIC: Decreased process coach strength in the left hand compared to the right. Cranial nerves II through XII are not immediately assessed at the bedside. SKIN: With scattered ecchymoses, some distal forearm swelling of the left upper extremity, postsurgical scarring in the mid abdomen about the periumbilical area, with scattered areas of bruising, likely due to combination anticoagulant therapy and ongoing insulin use. LABORATORY DATA: As per chart. IMPRESSION: An 82-year-old, morbidly obese patient with multiple medical problems and comorbidities, presenting with history of questionable altered mental status and questionable subacute event at some point the end of last week. She does have a very strong history of cerebrovascular accidents as noted in the chart. She also presents with fluid overload secondary to lack of ongoing use and compliance with diuretic therapy. She will be admitted for intravenous diuresis, overnight observation, and consideration for further diagnostic workup for neurologic concerns, as well as abdominal concerns. She did have a cardiac echocardiogram as recently as November of this year. I do not feel that repeating the cardiac echocardiogram would be of any benefit. Certainly, if she has new areas outside of those already noted within the toribio in the left mid brain, this would substantiate clinical history obtained from the last night in the emergency room. I have also expressed concern with multiple admissions in the past 6 months, including those for acute MD, congestive heart failure, and now questionable cerebrovascular accident complicated by recurrent congestive heart failure. I do think the patient would be an excellent candidate for placement in a long-term skilled facility and/or to consider the possibility of transitioning to supportive hospice care. We will see how the next 12 to 24 hours go, and continue to make clinical decisions based on findings. The patient and the understand the course of treatment and plan. No further issues at this time. H and P is dictated on the morning following admission. 75 minutes at the bedside on ER for evaluation cc: DO RISHABH Farrar
[2017-02-01] MEDS ORDERED: VITAMIN D PO SCH ×2 (09:00→22:30)
--- NOTE | 2017-02-01 09:39 | Diag Imaging Result Doc PS360 ---
EXAM: MRI BRAIN W W/O CONTRAST HISTORY: Slurred speech, right facial droop and LUE weak TECHNIQUE: MRI of the brain with and without gadolinium, T1 sagittal, axial, and post gadolinium FSPGR 3-D axial with coronal reconstruction, coronal gradient echo, T2, FLAIR and DWI axial. COMMENT: There is no evidence of restricted diffusion, bleed, abnormal extra-axial fluid collection, hydrocephalus, or abnormal gadolinium enhancement. There are multiple lacunae a present including one in the left upper toribio. There is periventricular white matter hyperintensity on the T2 and FLAIR images consistent with chronic microvascular white matter disease. No previous MRI studies are available for comparison. There are lacunae in a patient visible on the previous CT of 09/14/2016 in the toribio. 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 Electronically signed by Evan Flower 02/01/2017 9:36 AM
[2017-02-01] MEDS: LASIX IV SCH ×2 (10:13→21:18)
[2017-02-01] MEDS: IMDUR PO SCH ×2 (10:13→21:18)
[2017-02-01] MEDS: PLAVIX PO SCH (10:13)
[2017-02-01] MEDS: ICAR-C PLUS PO SCH (10:14)
[2017-02-01] MEDS: AMARYL PO SCH ×2 (10:14→16:36)
[2017-02-01] MEDS: COREG PO SCH ×2 (10:14→21:18)
--- NOTE | 2017-02-01 10:22 | Diag Imaging Result Doc PS360 ---
EXAM: ABDOMEN/PELVIS W/WO CONTRAST INDICATION: LLQ pain TECHNIQUE: Dose reduction protocol was used. COMPARISON: 09/14/2016 FINDINGS: There are bilateral moderate-sized pleural effusions with bibasilar atelectasis. There are multiple calcified granulomata in the liver and the spleen. The liver and spleen are grossly unremarkable, otherwise. There is stable atrophy and fatty replacement of the pancreatic parenchyma. The pancreas is unremarkable, otherwise. The adrenal glands are unremarkable. There is a small simple appearing left renal cyst anteriorly. The kidneys are grossly unremarkable, otherwise. There is a Hernandez catheter in the urinary bladder and the bladder is nondistended. The appendix is normal. The reproductive tract is grossly unremarkable. The GI tract is essentially unremarkable. There is no evidence of diverticulitis. No intra-abdominal focal inflammatory changes, free abdominal gas, or free fluid is appreciated. There is extensive anasarca involving the body wall. IMPRESSION: 1.Bilateral moderate-sized pleural effusions and bibasilar atelectasis. 2.Diffuse body wall anasarca. 3.Incidental/nonacute findings detailed above but no definite acute intra-abdominal or intrapelvic pathology. Electronically signed by Tc Farfan 02/01/2017 10:20 AM
[2017-02-01] MEDS: ATIVAN PO PRN ×2 (17:53→21:26)
--- NOTE | 2017-02-01 19:46 | PROGRESS NOTE ---
DATE: 02/01/2017 SUBJECTIVE: This is hospital day #2. INDICATION FOR CONTINUED HOSPITALIZATION: Ongoing diuresis for acute diastolic congestive failure on chronic diastolic congestive failure, left lower extremity cellulitis secondary to venous stasis with culture positive for Pseudomonas aeruginosa and enterococcus faecalis. Also follow up on MRI of the brain which is unremarkable and CT scan of the abdomen and pelvis which is unremarkable, new onset bilateral pleural effusions. Etiology is queried likely secondary to generalized edema/anasarca and medical noncompliance. VITALS: Blood pressure 149/61, respiratory rate at 22, pulse at 73, temperature 98.4 degrees. I's and O's for the past 24-36 hours she is approximately 4.2 L out and 480 mL in putting her down approximately 3.720 L. LABORATORY FOR TODAY: Hemoglobin and hematocrit 10.8 and 36.4 with platelets at 188,000. Sodium 146, potassium 3.6, chloride 103, bicarb at 37, BUN and creatinine at 6 and 1.0, glucose at 135, albumin at 2.9, B12 at 833, vitamin D low at 17.6. Urinalysis is negative. Additional reports today. MRI of the brain demonstrating a chronic microvascular disease with an old lacunar infarct particularly noted within the toribio. CT scan of the abdomen and pelvis. Bilateral moderate size pleural effusions, diffuse body wall anasarca. No additional evidence of intraabdominal pathology. EKG demonstrating a low limb lead voltage, nonspecific and diffuse T- wave changes are noted. No previous EKG is readily available for review. EXAM: HEENT: Unremarkable. Cardiovascular: Distant heart sounds but with regular rate and rhythm. Lungs: With decreased breath sounds secondary to poor inspiratory effort. Abdomen: With persistent tenderness in the left lower quadrant. Bowel sounds are present but hypoactive. Extremities: Lower extremities. Dressings are removed, hyperpigmented venous stasis changes are noted bilaterally left greater than right. Superficial ulceration with minimal amount of mucopurulent drainage at the inferior portion, 1+ pitting edema is noted proximally to lower extremity wrapping. Neuro: Cranial nerves 2-12 are grossly intact. Patient is alert, oriented x3. IMPRESSION: 1. From a cardiovascular standpoint patient is approximately 3-4 months out from recent myocardial infarction requiring stenting in [place]. There was a vessel that was not addressed at 80% this the left anterior descending. The family is concerned that her fluid status may be related to occult ischemia and is requesting an opinion of the panel machine setter she is seeing Dr. Javier Mejía. We will be consulting him routinely. 2. Bilateral lower extremity venous stasis chronic changes and superimposed skin breakdown with cellulitis now with culture positivity the left lower extremity per Home Health. She is currently on Rocephin for a questionable urinary tract which is returned as unremarkable. We will be transitioning her to Levaquin and vancomycin and asking for the opinion of Infectious Disease. No evidence of bacteremia or sepsis at this time. We continue to follow clinically. 3. Morbid obesity. 4. Diastolic dysfunction complicated by recurrent congestive failure secondary to lack of ongoing maintenance with diuretics. Patient is morbidly obese. She has significant issues with transfer and has no appreciable help at home. She has historically complained of the diuretics resulting in urinary incontinence, swelling and general discomfort and therefore she does not take as directed. DISPOSITION: We will be seeking the opinion of the wound care nurse as well as infectious disease although I do think that a short course of antibiotics may be appropriate, ongoing wound care and surveillance is probably the best course of action as well as continuing to control the lymphedema. Will be seeking the opinion of cardiology as well and continue with ongoing diuresis as tolerated. The patient, the and the daughter understand the course of treatment and plan. No further issues at this time. Note is dictated on the evening of rounds. cc: Hamzah Mejía,
[2017-02-01] MEDS: REQUIP PO SCH (21:17)
[2017-02-01] MEDS: KLOR-CON PO SCH (21:18)
[2017-02-01] MEDS: XARELTO PO SCH (21:18)
[2017-02-01] MEDS: LIPITOR PO SCH (21:18)
[2017-02-01] MEDS ORDERED: LEVAQUIN 750 MG/D5W 750 MG/150 ML IVPB IV ONE (22:43)
[2017-02-01] MEDS ORDERED: VANCOMYCIN 1 GM/NS 1 GM/250 ML IVPB IV ONE (22:45)
[2017-02-02] MEDS: ROCEPHIN 1 GM/NS 1 GM/50 ML IVPB IV SCH (06:28)
[2017-02-02 07:03] LABS: MANUAL DIFF NEEDED? NO
[2017-02-02 07:11] LABS: BASO% 0.5 % (0.0-0.8); EOS% 4.6 % (0.0-10.0); HEMATOCRIT 36.9 % (37.0-47.0); HEMOGLOBIN 11.3 g/dL (12.0-16.0); LYMPH# 0.88 X1000 (1.2-3.4); LYMPH% 13.4 % (20.5-51.1); MCH 30.8 PG (27-31); MCHC 30.6 g/dL (33-37); MCV 100.5 FL (81-99); MONO# 0.95 X1000 (0.11-0.59); MONO% 14.4 % (1.7-9.3); MPV 10.9 FL (7.4-10.4); NEUT% 67.1 % (42.2-75.2); PLT 205 X1000 (130-400); RBC 3.67 XMIL (4.2-5.4)
--- NOTE | 2017-02-02 07:16 | PROGRESS NOTE ---
DATE: 02/02/2017 This will be hospital day #3. REASON FOR ONGOING HOSPITALIZATION: Wound care evaluation of chronic venous stasis complicated by ulcer secondarily infected by pseudomonas and enterococcus. Wound care evaluation pending. Also, cardiology opinion with regards to recent RI with stenting in 1 of 2 vessels. Patient and family interested in cardiac evaluation for ongoing coronary disease. Persistent left lower quadrant pain, status post CT scan of the abdomen with unremarkable findings. Vitals this morning, blood pressure 104/48, saturating 94% on 2 L, respirations at 20, temperature at 97.8 degrees. Is and Os, 5800 out and 480 in for -5.3 L. This makes the hospital total output at 7.5 L. Weight at 290 pounds. Patient presenting with a weight of 300. Procedures over the past [address] scan of the abdomen and pelvis demonstrating moderate pleural effusions and diffuse body wall anasarca, left-sided renal cyst, evidence of diverticular disease without evidence of diverticulitis or free fluid. An MRI of the brain is also performed, demonstrating no evidence of acute event. We continue to follow clinically in this regard. PHYSICAL EXAMINATION: HEENT: Unremarkable. Cardiovascular: Regular rate and rhythm. Lungs: Clear. Abdomen: Protuberant. Postsurgical changes noted. Persistent tenderness in the left lower quadrant is noted as well. Extremities: Markedly better with decreased edema. The presence of chronic venous stasis changes are noted as well as superficial ulcerations with minimal mucopurulent drainage. Neurological: Cranial nerves 2-12 are grossly intact. IMPRESSION: 1. Bilateral lower extremity cellulitis, pseudomonas and enterococcus by wound culture historically, patient having received a single dose of Levaquin and single dose of vancomycin in anticipation of a wound care evaluation as well as infectious disease recommendation for outpatient therapy. 2. Known coronary disease, status post stenting earlier this spring for acute myocardial infarction. One vessel, the left anterior descending at 80%, not addressed during that hospitalization. Family concerned despite the patient being asymptomatic without chest pain or exertional shortness of breath, or worrisome chemistry or abnormal EKG, that the non- addressed vessel is contributory to her problems. I have advised her that while she is here, we will certainly have cardiology give us an opinion. She is a private patient of Dr. Javier Mejía and we will ask him to see her. DISPOSITION: Lengthy conversation with the patient regarding multiple admissions over the course of the past several months, all for a variety of causes. Many of her problems are likely to progress without any significant improvement or viable options for intervention, such as her abdominal pain which there are no obvious findings. We did discuss the possibility of exploratory laparoscopy but I do not think that this is practical or in her best interest. We also talked about additional workup including a possible colonoscopy. We have decided to approach transitioning to rehab and then to home with the understanding that if she was to re-present in the next several months that long-term placement in a prison care facility may be in her best interest And/or consideration for supportive hospice care at home. She will discuss some options with her and we will proceed accordingly. In the interim, we will start to work towards rehab and discharge probably in the next 24-48 hours. The patient understands the course of treatment and plan. No further issues at this time. cc: Hamzah Mejía DO
[2017-02-02 07:50] LABS: AGAP 8; ALBUMIN 2.9 g/dL (3.5-5.0); ALKALINE PHOSPHATASE 90 U/L (32-104); BUN 7 mg/dL (8-22); CALCIUM 8.8 mg/dL (8.8-10.2); CHLORIDE 97 mmol/L (98-107); COSMO 287; GOT 10 U/L (10-30); GPT < 5 U/L (10-36); POTASSIUM 3.6 mmol/L (3.5-5.1); SODIUM 145 mmol/L (136-145); TCO2 40 mmol/L (25-35); TOTAL BILIRUBIN 1.03 mg/dL (0.20-1.00); TOTAL PROTEIN 5.5 g/dL (6.3-8.3)
--- NOTE | 2017-02-02 07:55 | CONSULTATION ---
DATE OF CONSULTATION: 02/02/2017 CONCLUSION: The patient has cellulitis of the left leg. Culture from the leg grew Pseudomonas and enterococcus. RECOMMENDATIONS: I have switched the patient from Rocephin to Zosyn. Also I have ordered that the foot of the patient's bed should be elevated with the manual Gatch at all times and that the patient should elevate her leg as much as possible. DISCUSSION: Unfortunately the patient could not give a history and the caregiver who was present did not know much about the patient either. The history I am going by is mainly the history and physical dictated by Dr. Mejía. She apparently was admitted to the hospital with slurred speech, left upper extremity weakness, and generalized edema. She was noted to have bilateral leg edema but the left leg was bigger than the right leg. Also it was erythematous and it had an ulcerated area anteriorly. LABORATORY DATA: Thus far shows a CBC with a white count of 5,270, hemoglobin 10.8, and platelet count 188,000. Creatinine is 1.1. GFR is 48. Liver function studies were normal. Urinalysis showed white cells and bacteria. Urine culture was negative. The culture taken from the patient's leg grew Pseudomonas and enterococcus. An MRI of the brain showed chronic microvascular white matter disease. CT scan of the abdomen and pelvis showed anasarca and moderate-sized for pleural effusions and bibasilar atelectasis. 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 PAST SURGICAL HISTORY: Positive for lumbosacral spine surgery, cataracts surgery, cholecystectomy secondary to cholelithiasis. HOSPITALIZATIONS: The patient has had a stent placed in the coronary arteries. She has had a fracture of the ankle, a non-ST-wave elevation myocardial infarction, respiratory failure, CHF, edema, hypoxia, acute myocardial infarction, congestive heart failure. ALLERGIES: Iodine. HOME MEDICATIONS: Include the following. Requip, Xarelto, potassium, Protonix , mometasone, Lorazepam, Isordil, hydroxyzine, glimepiride, clopidogrel, carvedilol, atorvastatin, and cholecalciferol. PHYSICAL EXAMINATION: Vital Signs: Temperature is 97.8 degrees, pulse 74, respirations 20, blood pressure 104/80. General: This is a morbidly obese, elderly female. She is in no acute distress. Head, eyes, ears, nose, and throat: Patient can hear my spoken words. She can see near objects. No drainage is noted from the nose or ears. Neck: No meningismus. Lungs: Clear to auscultation. Cardiovascular: Regular heart rate. Abdomen: Soft, slightly distended, but not tender. Extremities: The patient's left leg is more swollen than the right. It also is more erythematous and it has an ulcerated area anteriorly. Neurologic: Patient is awake. She has generalized weakness. She can move her extremities, however. There is no tremor. She can see near objects. She can hear my spoken words. Thank you for the consult. cc: MD Hamzah Hughes DO MTDD
[2017-02-02] MEDS: ATIVAN PO PRN ×2 (09:24→18:10)
[2017-02-02 09:39] LABS: PREALBUMIN 5.9 mg/dL (20-40)
[2017-02-02] MEDS: IMDUR PO SCH ×2 (10:03→21:54)
[2017-02-02] MEDS: COREG PO SCH ×2 (10:03→21:53)
[2017-02-02] MEDS: PLAVIX PO SCH (10:03)
[2017-02-02] MEDS: AMARYL PO SCH ×2 (10:03→16:53)
[2017-02-02] MEDS: ICAR-C PLUS PO SCH (10:03)
[2017-02-02] MEDS: LASIX IV SCH ×2 (10:04→21:54)
[2017-02-02] MEDS: ZOSYN 4.5 GM/NS 4.5 GM/100 ML IVPB IV SCH ×3 (10:04→21:53)
--- NOTE | 2017-02-02 13:02 | CONSULTATION ---
DATE OF CONSULTATION: 02/02/2017 IMPRESSION: 1. Lywvm-[id number] congestive heart failure. Suspect this is largely related to right-sided heart failure in a setting of morbid obesity. 2. Venous insufficiency. 3. Atherosclerotic coronary disease. (A) Status post acute inferior myocardial infarction in 08/2016. (B) Status post angioplasty/stenting of right coronary artery in 08/2016. (C) Diffuse coronary atherosclerosis in other vessels not amenable to percutaneous intervention. 4. Normal left ejection fraction. 5. Hypertensive cardiovascular disease with probable diastolic dysfunction. 6. Atrial fibrillation, paroxysmal. 7. Previous cerebrovascular accident. 8. Type 2 diabetes mellitus. 9. Morbid obesity. 10. Probable venous insufficiency. RECOMMENDATIONS: 1. Continue diuresis. 2. Continue medical management of patient's coronary atherosclerosis along with current antiplatelet/anticoagulation regimen. 3. Weight loss discussed. HISTORY: This 82-year-old white female with a past history of morbid obesity, diabetes mellitus, hypertension, atherosclerotic coronary disease, venous insufficiency, paroxysmal atrial fibrillation, and previous cerebrovascular accident was admitted with worsening edema, fatigue, as well as some shortness of breath. She has had no recurrence of angina. She is status post acute inferior myocardial infarction in 08/2016 and underwent emergent angioplasty/stenting of the right coronary artery. She was also found at that time to have diffuse coronary atherosclerosis in other vessels. Diffused nature of disease had rendered vessels too small for percutaneous intervention. Left ventricular ejection fraction has been normal. PAST MEDICAL HISTORY: 1. Morbid obesity. 2. Diabetes mellitus, type 2. 3. Hyperlipidemia. 4. Hypertension. 5. Previous cerebrovascular accident. 6. Atherosclerotic coronary disease as outlined above. 7. Paroxysmal atrial fibrillation. 8. Venous insufficiency of the lower extremities. PAST SURGICAL HISTORY: Cataract surgery, cholecystectomy, and unspecified back surgery. ALLERGIES: She is allergic or intolerant to iodine. MEDICATIONS: Prior to admission is listed. SOCIAL HISTORY: She is retired and lives at home. She does not smoke or use alcohol. Her ability to ambulate is somewhat limited, and she tends to live in a [id number] existence. FAMILY HISTORY: Positive for coronary artery disease. REVIEW OF SYSTEMS: Pulmonary: Noteworthy for dyspnea. She is not aware of any tendency for snoring. There has been no cough. There has been no orthopnea. Gastrointestinal: Negative. Constitutional: Noncontributory. Remainder of review of systems negative/noncontributory beyond history of present illness with 14 total systems reviewed. PHYSICAL EXAMINATION: General: Physical exam reveals a morbidly obese, older, white female, in no distress. Vital Signs: Blood pressure 104/48, heart rate 79 and regular. HEENT: Extraocular movements intact. Mucous membranes moist. Neck: Supple. Jugular distention cannot be discerned. There are no carotid bruits. Chest: Auscultation of the chest reveals diminished breath sounds at bases bilaterally. Cardiac: Exam reveals distant heart sounds and a regular rate and rhythm without appreciable murmur or gallop. Abdomen: Soft, nontender. Extremities: Demonstrate prominent chronic venous stasis changes and moderate edema. Neurologic: Exam reveals her to be alert and responsive. She moves all 4 extremities equally well. DIAGNOSTIC DATA: ECG demonstrates sinus rhythm and low voltage QRS diffusely. cc: MD Hamzah Hooker, DO
[2017-02-02] MEDS: NS 1,000 ML IV SCH (16:52)
[2017-02-02] MEDS: BACTROBAN OINTMENT TOP SCH ×2 (16:53→21:54)
[2017-02-02] MEDS: KLOR-CON PO SCH (21:53)
[2017-02-02] MEDS: LIPITOR PO SCH (21:54)
[2017-02-02] MEDS: XARELTO PO SCH (21:54)
[2017-02-02] MEDS: REQUIP PO SCH (21:54)
[2017-02-02] MEDS: DEMEROL IV PRN (23:11)
[2017-02-03] MEDS: ZOSYN 4.5 GM/NS 4.5 GM/100 ML IVPB IV SCH ×4 (04:33→21:37)
[2017-02-03] MEDS: NS 1,000 ML IV SCH ×3 (05:49→21:36)
--- NOTE | 2017-02-03 06:09 | EKG Report ---
Test Performed on : 02/03/2017 05:18:12 AM Test Reason : dyspnea Blood Pressure : / mmHG Vent. Rate : 075 BPM Atrial Rate : 075 BPM P-R Int : 156 ms QRS Dur : 080 ms QT Int : 452 ms P-R-T Axes : 093 029 057 degrees QTc Int : 504 ms Sinus rhythm. with premature supraventricular complexes. Low voltage QRS Inferior infarct , age undetermined Abnormal ECG When compared with ECG of 01-FEB-2017 01:04, (Unconfirmed) Sinus rhythm. has replaced Junctional rhythm. Small Q waves inferior of uncertain clinical significance - consider inferior event (NEW since 017) Clinical Correlation advised Confirmed by Hamzah Mejía DO ([id number]) on 02/06/2017 9:53:30 AM
[2017-02-03 07:45] LABS: MANUAL DIFF NEEDED? NO
[2017-02-03 07:47] LABS: CALCIUM 8.5 mg/dL (8.8-10.2); MAGNESIUM 1.1 mg/dL (1.5-2.7); POTASSIUM 3.5 mmol/L (3.5-5.1)
--- NOTE | 2017-02-03 07:47 | PROGRESS NOTE ---
DATE: 02/03/2017 INDICATION FOR PROLONGED HOSPITALIZATION: Status post Cardiology and Infectious Disease consult, now working towards rehab placement. The family states that Pending sale to [facility] spoke with the patient yesterday. The patient has chosen [facility] for rehab placement. Rehab placement is currently in the works. Over the past 24 hours, no significant developments, with the exception of new-onset diary. I suspect this is antibiotic related. She did receive an isolated dose of Levaquin and vancomycin pending Infectious Disease consultation for Enterobacter and Pseudomonas cellulitis of the lower extremities. She is now currently on Zosyn. Also, an episode of hypoglycemia this morning, responding to oral juice. We will be stopping the glimepiride, which she is currently taking 2 mg twice daily. VITAL SIGNS THIS MORNING: Blood pressure 117/39, pulse at 69, temperature at 97.4 degrees, saturating 96% on room air. The patient is currently at 289, with admission weight at 300. This would put her down approximately 11 pounds since admission. I's and O's are 2.3 L in and 6.3 L out, for -4.0 L. She is approximately 11 L down since admission. Gram-negative liz has grown out of urinalysis. Identification and sensitivities are not readily available for review. Infectious Disease note and Cardiology note are reviewed. EKG obtained this morning, preliminary report is reviewed. EKG demonstrating sinus rhythm with low limb lead voltage and diffuse ST-segment changes throughout. No obvious ST-segment elevation. PHYSICAL EXAMINATION: HEENT: Unremarkable. Cardiovascular: Distant heart sounds, but regular rate and rhythm. Lungs: Clear. Abdomen: Continues to be protuberant, and interestingly less tender in the left lower quadrant. It is difficult to ascertain as to whether this is due to recent initiation of antibiotics, although historical CT scan of the abdomen and pelvis fails to demonstrate any type of diverticular or inflammatory process which might respond to antibiotics. Extremities: Markedly improved. Decreased lower extremity edema, with chronic venous stasis changes. No longer mucopurulent drainage. However, persistent erythema is noted. Neurological: Cranial nerves II through XII are grossly intact. IMPRESSION: 1. Bilateral lower extremity cellulitis with Pseudomonas and enterococcus positivity. Appreciate Infectious Disease recommendations to transition to Zosyn. However, now with some diarrhea. We will be following clinically. Continue with wound care as requested. 2. Acute on chronic diastolic congestive failure, status post 11 liters of diuresis. Chemistry ordered for this morning, specifically looking at sodium, potassium, and magnesium in the presence of large-volume diuresis as well as renal function. DISPOSITION: Patient with multiple medical problems and comorbidities, putting her at long-term risk for ongoing clinical decline. We did discuss placement in rehab with the intent of transitioning to home. However, in the event that the patient was to rebound and/or represent in the future, home option and rehab home options would no longer be viable long-term care options. The family is interested in long-term placement secondary to her ongoing need for 24-hour care. No additional recommendations or concerns at this time. The patient, caregiver, and understand the course of treatment and plan. Note is dictated on the morning of rounds. cc: Hamzah Mejía DO
[2017-02-03 07:54] LABS: BASO% 0.5 % (0.0-0.8); EOS# 0.32 X1000 (0.0-0.7); EOS% 4.3 % (0.0-10.0); HEMATOCRIT 36.7 % (37.0-47.0); HEMOGLOBIN 11.2 g/dL (12.0-16.0); LYMPH# 0.99 X1000 (1.2-3.4); LYMPH% 13.4 % (20.5-51.1); MCH 30.7 PG (27-31); MCHC 30.5 g/dL (33-37); MCV 100.5 FL (81-99); MONO# 1.22 X1000 (0.11-0.59); MONO% 16.6 % (1.7-9.3); MPV 11.3 FL (7.4-10.4); NEUT% 65.2 % (42.2-75.2); PLT 204 X1000 (130-400); RBC 3.65 XMIL (4.2-5.4)
[2017-02-03 08:04] LABS: ALBUMIN 2.7 g/dL (3.5-5.0); DIRECT BILIRUBIN 0.6 mg/dL (0.00-0.20); TOTAL BILIRUBIN 1.28 mg/dL (0.20-1.00); TOTAL PROTEIN 5.1 g/dL (6.3-8.3)
[2017-02-03] MEDS: ICAR-C PLUS PO SCH (08:50)
[2017-02-03] MEDS: BACTROBAN OINTMENT TOP SCH ×2 (08:51→21:38)
[2017-02-03] MEDS: PLAVIX PO SCH (08:52)
[2017-02-03] MEDS: LASIX IV SCH (08:53)
[2017-02-03] MEDS: COREG PO SCH ×2 (08:53→21:38)
[2017-02-03] MEDS: IMDUR PO SCH (08:53)
[2017-02-03] MEDS ORDERED: D50W SYRINGE IV ONE (12:01)
[2017-02-03] MEDS ORDERED: D50W SYRINGE ONE (12:06)
[2017-02-03] MEDS: ATIVAN PO PRN ×2 (13:57→21:36)
--- NOTE | 2017-02-03 15:47 | PROGRESS NOTE ---
DATE: 02/03/2017 SUBJECTIVE: Patient continues without dyspnea on supplemental oxygen with nasal cannula. There has been no chest pain. OBJECTIVE: Vital Signs: Blood pressure 126/60. Heart rate 73, oxygen saturation 94% on nasal cannula oxygen. Urine output over last 24 hours 6300. Neck: Jugular venous distention cannot be appreciated. Chest: Auscultation of the chest reveals bibasilar inspiratory crackles. Cardiac Exam: Reveals distant heart sounds and a regular rate and rhythm without appreciable murmur or gallop. Extremities: Demonstrate prominent chronic venous stasis changes and very little edema. LABORATORY DATA: Includes a BUN of 8 and a creatinine 1.3. CO2 42, potassium 3.5, sodium 148. IMPRESSION: 1. Acute on chronic congestive heart failure with right-sided congestive heart failure in the setting of obesity and probable left-sided diastolic dysfunction. The patient is vigorously diuresing. 2. Venous insufficiency. 3. Atherosclerotic coronary disease. 4. Normal left ventricular ejection fraction. 5. Hypertensive cardiovascular disease with probable diastolic dysfunction. 6. Paroxysmal atrial fibrillation. 7. Previous cerebrovascular accident. 8. Morbid obesity. 9. Type 2 diabetes mellitus. RECOMMENDATIONS: 1. Continue diuresis albeit at a reduced rate at this point. 2. Follow renal function. cc: MD Hamzah Hooker,
--- NOTE | 2017-02-03 16:03 | PROGRESS NOTE ---
DATE: 02/03/2017 PRESENT ILLNESS: The patient has bilateral leg cellulitis. Today and last night it was noted the patient was having some loose stools. They are not watery. She has had approximately 3 loose stools in the last 18 hours. MEDICATIONS: The patient is receiving Zosyn for her leg cellulitis. This is day 1 of treatment with Zosyn. PHYSICAL EXAMINATION: Vital Signs: Temperature is 98.2 degrees, pulse 73, respirations 22, blood pressure 126/60. General: This is an obese, chronically ill-appearing, elderly female. She is in no acute distress at this time. Lungs: Clear to auscultation. Cardiovascular: Regular heart rate. Abdomen: Soft and nontender. Extremities: Both legs are less swollen. They have a dark red discoloration to them. LAB AND X-RAY: The patient's CBC shows a white count of 7370, hemoglobin 11.2, and platelet count 204,000. Creatinine is 1.3. GFR is 39. Bilirubin is 1.28. ASSESSMENT AND PLAN: The patient has leg cellulitis. My plan would be to continue elevation of her legs and Zosyn. The patient now is reported to have some loose stool. I have ordered for a stool to be sent for Clostridium difficile toxin. The patient's comorbidities include the fact she is obese which causes her to have a persistent leg edema which is a risk factor for leg cellulitis to occur. She also has diabetes and nephropathy. As regards the patient's loose stools I have sent a stool for Clostridium difficile toxin. For now, I will continue with Zosyn to treat her cellulitis. COMORBIDITIES: Include stroke, diabetes end-stage renal disease, and morbid obesity. cc: MD Hamzah Hughes, DO KEATING
[2017-02-03] MEDS: XARELTO PO SCH (21:37)
[2017-02-03] MEDS: DEMEROL IV PRN (21:37)
[2017-02-03] MEDS: REQUIP PO SCH (21:37)
[2017-02-03] MEDS: LIPITOR PO SCH (21:38)
[2017-02-03] MEDS: KLOR-CON PO SCH (21:38)
[2017-02-04] MEDS: DEMEROL IV PRN ×3 (00:35→11:20)
[2017-02-04] MEDS ORDERED: D50W SYRINGE ONE (03:18)
[2017-02-04] MEDS: ATIVAN PO PRN (03:37)
[2017-02-04] MEDS ORDERED: D50W SYRINGE IV PRN (03:46)
[2017-02-04] MEDS ORDERED: D5 NS 1,000 ML IV SCH (03:48)
[2017-02-04] MEDS: ZOSYN 4.5 GM/NS 4.5 GM/100 ML IVPB IV SCH ×2 (04:10→09:43)
--- NOTE | 2017-02-04 08:07 | Extremity Venous Study ---
PROCEDURE NAME: Venous U/S Bilateral Legs - 02/02/2017 STUDY: Bilateral lower extremity venous duplex, and color flow imaging study using the [employer] Vivid E9 Ultrasound System with a 9 L-D transducer. REFERRING PHYSICIANS: Kameron Kapoor MD PATIENT PROFILE: An 82-year-old female. NET DEVELOPER: Geetha Guzman RVT ROOM: #[facility]. INDICATIONS: 1. Swelling of the limb, ICD 10 M79.89. 2. Erythema, redness, ICD 10 L53.9. The patient has bilateral lower extremity pain, edema and skin changes. FINDINGS: This is a limited study secondary to morbid obesity. The visualized portions of the right common femoral vein and its branches, the deep and superficial femoral veins had flow through them without evidence of thrombus. The right popliteal vein had flow without thrombus visualized. The deep veins below the right knee were not visualized well. Superficial veins, when they were visualize of the right lower extremity, were compressible and had no thrombus. The left common femoral vein and its branches, deep and superficial femoral veins, again were difficult to visualize. They had flow through them without evidence of thrombus. The left popliteal vein had no thrombus and again flow through it. The deep veins below the left knee were not imaged well. The superficial veins of the left lower extremity, when imaged, appeared to be patent. INTERPRETATION: Limited bilateral lower extremity venous study. We did not visualize any acute deep or superficial venous thrombosis of the bilateral lower extremities. cc: MD Kameron Edmonds MD Jeffrey A. Johnson,
[2017-02-04] MEDS ORDERED: IMDUR PO SCH (09:00)
[2017-02-04] MEDS ORDERED: LASIX IV SCH (09:00)
[2017-02-04] MEDS: PLAVIX PO SCH (09:41)
[2017-02-04] MEDS: BACTROBAN OINTMENT TOP SCH (09:41)
[2017-02-04] MEDS: COREG PO SCH (09:42)
[2017-02-04] MEDS: ICAR-C PLUS PO SCH (09:42)
[2017-02-04 09:53] VITALS: BP 124/69
--- NOTE | 2017-02-04 12:30 | DISCHARGE SUMMARY ---
ADMISSION DATE: 01/31/2017 DISCHARGE DATE: 02/04/2017 DISCHARGE DIAGNOSES: 1. [id number] diastolic congestive failure complicated by bilateral pleural effusions. Admission proBNP at 5771, status post greater than 12 L of diuresis. Admission weight 300 pounds, discharge weight at 286. 2. Bilateral lower extremity cellulitis with culture positivity with Pseudomonas aeruginosa as well as enterococcus faecalis. Patient initially started on Levaquin and vancomycin. ID consultation transitioning to Zosyn with some post treatment diarrhea noted. Clostridium difficile toxin noted to be negative. Patient continues to be afebrile as well as unremarkable white blood cell count. 3. Atherosclerotic coronary artery disease, manifested by a [id number] elevation myocardial infarction in the early spring, status post intervention with residual coronary not addressed at that time, the left anterior descending at 80%. Cardiology opinion sought at the family's request secondary to lower extremity edema and concern for silent angina and cardiac dysfunction as cause for lower extremity edema. No additional recommendations are made at this time. 4. Abdominal pain localizing to the left lower quadrant. Unremarkable CT scan. Incidental finding of left-sided renal cyst. 5. Anemia not otherwise specified, aware. 6. Vitamin D deficiency at 17.6. [place] [address] units weekly for 8 weeks. 7. Protein malnutrition. Low serum albumin and low pre-albumin at 5.9, likely further complicating lower extremity edema. 8. Urinary tract infection. Escherichia coli positive galindo sensitivity. Patient now on 3 days worth of antibiotics and this should provide adequate coverage. No evidence of urosepsis or bacteremia. No discharge antibiotics are being offered. 9. Hypoglycemia. Cessation of oral sulfonylurea. This this may be secondary to carvedilol as well in the evening. Follow clinically in this regard. There does appear to be a significant component of dietary and lifestyle indiscretion at home with patient requiring insulin to control her sugars. She has not been on insulin during this hospitalization and her sugars have been normal to low, further giving credence to significant diet and lifestyle indiscretion. Will continue to follow clinically in this regard. PROCEDURES DURING ADMISSION: Including CT scan of the abdomen and pelvis on 02/01/2017. MRI of the brain on 02/01/2017 for slurred speech, alleged right facial droop and left upper extremity weakness. Known history of CVA. No acute issues noted on MRI. Venous Doppler ultrasound performed on 02/02/2017 for lower extremity edema: No acute visualization of superficial or deep vein thrombosis of the lower extremity. CONSULTATIONS DURING ADMISSION: Including infectious disease and cardiology. MEDICATIONS ON DISCHARGE: Including Plavix 75 mg once daily, vitamin D2 50,000 units once weekly for 8 weeks, potassium 20 mEq p.o. daily, isosorbide 30 mg p.o. daily, Xarelto 15 mg p.o. daily, Lipitor 40 mg p.o. at bedtime, carvedilol 3.125 mg b.i.d., hydroxyzine 25 mg b.i.d. p.r.n., lorazepam 0.5 mg t.i.d. p.r.n., Protonix 40 mg p.o. daily, Requip 0.5 mg p.o. at bedtime, Dulera 200/5 one puff b.i.d., and adding Lasix 40 mg p.o. daily. HOSPITAL COURSE: Ms. Robles was admitted for particulars dictated by myself on 02/01/2017 for shortness of breath and clinical evidence of anasarca. She was noted to have nonspecifically elevated proBNP with known history of coronary disease as well as diastolic congestive failure. She had a cardiac echo on the last visit and therefore we did not initiate cardiac echo this time. Began diuresing her at 40 mg of Lasix b.i.d. with marked response. By the end of her hospitalization, she was down nearly 15 pounds and nearly 12 L. She was noted to have nonspecific abdominal pain and a CT scan of the abdomen failing to demonstrate any evidence of left lower quadrant pathology. Her primary concern was lower extremity erythema and chronic venous stasis complicated by bacterial infection with culture positive pseudomonas and enterococcus. Infectious disease was consulted recommending transitioning to Zosyn. She did receive a total of 3 days of antibiotics. The first day was Levaquin and vancomycin pending ID consultation and then 2 days of Zosyn. She has improved slowly and is in my opinion, stable for discharge. DISPOSITION: The patient with multiple comorbidities and morbid obesity, and essentially bedbound status, putting her at long-term risk for clinical decline and decompensation. Lengthy discussion with the patient and the at the bedside regarding serious consideration to be given to long-term care placement and even consideration regarding palliative hospice care. With no new and additional or ongoing issues at this time, the patient is transferred to rehab facility with long-term plan likely being jail placement. The and patient understand the course of treatment and plan. No further issues at this time. cc: Hamzah Mejía, DO
== END 2017-02-04 13:47 ==
LOC: SUPCPDRO → ED 17:45 → 3N 23:05
PROVIDERS: ADMIT Internal Medicine; ATTEND Internal Medicine